=== PATIENT | male | born 1950 | race Caucasian/White ===

== ENCOUNTER 2017-02-28 18:14 | Inpatient (IN) ==
[2017-02-28] MEDS ORDERED: *HR* Heparin 5,000 UNIT/ML VIAL IVP PRN ×2 (22:21→22:29)
--- NOTE | 2017-02-28 22:29 | Internal Med History&Physical ---
Date of Encounter: 02/28/17 Time of Encounter: 22:24 Assessment and Plan (1) NSTEMI (non-ST elevated myocardial infarction) Current visit: Yes Status: Acute Likely NSTEMI TYPE 1 due to occlusive coronary artery disease. According to cardiology recommendations patient will be started on heparin drip aspirin Plavix nitro drip. Patient has significantly improved during the interview. Will have a coronary Angiogram tomorrow. However heart rate is in the 60s no room for beta blockers. Supporters 17. EKG shows [address] segment elevation in V1 and avr operating criteria for stemi and no reciprocal ST segment depression. Internal Medicine - H&P: HPI Chief complaint: chest pain History of present illness: Mr. Porras is a 66 year old male presents to the emergency room today with a main complain of chest pain. Patient mention since yesterday he started having episodes of retrosternal chest pain radiating to both shoulders and arms associated with shortness of breath lasting for approximately 15 to 20 minutes. His pain has significantly improved during my interview. no fevers chills. He mentioned that she had used flex seed prior to the onset of symptoms but does not think that this is related. troponin level checked at outside facility was 17 Past Med Surg Social Fam HX - Past Medical History Medical history: hypertension, kidney stones, myocardial infarction, renal disease, other Psychiatric history: no psych history - Past Surgical History Surgical History: other - Social History Smoking Status: Never smoker Smokeless Tobacco Status: No Alcohol use: occasionally Drug use: none, other - Family History Father Age at : 76 Hx Family Genitourinary Disorders: Yes (kidney problems) Internal Medicine - H&P: Meds Albuterol Sulfate [Ventolin Hfa] 2 puff IH QID PRN 02/28/17 [History] Amlodipine Besylate 10 mg PO DAILY 02/28/17 [History] Gabapentin [Neurontin] 600 mg PO BID 02/28/17 [History] Lisinopril [Zestril] 20 mg PO BID 02/28/17 [History] 3 Allergy/AdvReac Type Severity Reaction Status Date / Time No Known Allergies Allergy Verified 02/28/17 16:29 All Systems PM: A 10-system review of systems was performed and is negative for pertinent findings except as documented above in the HPI. Review of systems: 10 point review systems is negative except for HPI - Constitutional Vitals: Temp Pulse Resp BP Pulse Ox 97.8 F 67 16 148/86 94 02/28/17 20:24 02/28/17 20:24 02/28/17 20:24 02/28/17 20:24 02/28/17 20:24 Exam: Gen.: patient is alert oriented times 3 not in distress. Cardiac: normal S1 S2 no additional sounds or murmurs chest: fair air entry. no active wheezing. No crackles or bronchial breathing. abdomen: soft nontender nondistended normal bowel sounds neuro: no focal deficit
[2017-02-28] MEDS ORDERED: Heparin 25,000 UNIT/500 ML D5W 25,000 UNIT/500 ML MLS IVC SCH (22:30)
[2017-02-28] MEDS: Lisinopril 20 MG TABLET PO SCH (23:04)
[2017-02-28] MEDS: Gabapentin 300 MG CAPSULE PO SCH (23:04)
[2017-03-01 00:58] LABS: Hemoglobin 14.7 g/dL (12.9-16.9); Immature Platelets 4.3 % (1.1-6.1); Mean Corpuscular HGB Conc 34.2 g/dL (31.6-35.5); Mean Corpuscular Hemoglobin 30.9 pg (28.0-33.3); Mean Corpuscular Volume 90.5 fL (83.0-100.0); Mean Platelet Volume 10.3 fL (9.4-12.4); Red Blood Count 4.75 M/mcL (4.19-5.50); Red Cell Distribution Width 12.2 % (11.5-14.5)
[2017-03-01 01:15] LABS: INR 1.1; Prothrombin Time 11.8 Seconds (9.4-12.1)
[2017-03-01 07:16] LABS: INR 1.1; Prothrombin Time 11.9 Seconds (9.4-12.1)
[2017-03-01 07:18] LABS: Basophils % 0.2 %; Eosinophils # 0.1 K/mcL (0.0-0.6); Eosinophils % 1.5 %; Hematocrit 43.5 % (37.5-50.1); Hemoglobin 15.1 g/dL (12.9-16.9); Immature Granulocytes % 0.3 % (0-4); Lymphocytes # 2.3 K/mcL (0.6-4.6); Lymphocytes % 23.9 %; Mean Corpuscular HGB Conc 34.7 g/dL (31.6-35.5); Mean Corpuscular Hemoglobin 31.5 pg (28.0-33.3); Mean Corpuscular Volume 90.6 fL (83.0-100.0); Mean Platelet Volume 10.3 fL (9.4-12.4); Monocytes # 1.2 K/mcL (0.0-1.3); Monocytes % 12.5 %; Neutrophils # 5.8 K/mcL (1.6-8.9); Platelet Count 198 K/mcL (140-400); Red Cell Distribution Width 12.3 % (11.5-14.5); Segmented Neutrophils % 61.6 %
[2017-03-01 07:22] LABS: BUN/Creatinine Ratio 12 (6-26); Blood Urea Nitrogen 12 mg/dL (8-26); Calcium 9.6 mg/dL (8.6-10.8); Carbon Dioxide 25 mEq/L (19-29); Chloride 108 mEq/L (98-109); Glucose 108 mg/dL (70-99); Magnesium 2.1 mg/dL (1.6-2.6); Osmolality,Calculated 288 (280-300); Potassium 4.1 mEq/L (3.5-4.5); Sodium 139 mEq/L (136-145); eGFR For African Americans > 60 (> 60); eGFR For Non-African Americans > 60 (> 60)
[2017-03-01] MEDS: Gabapentin 300 MG CAPSULE PO SCH ×2 (07:59→20:20)
[2017-03-01] MEDS: amLODIPine 5 MG TABLET PO SCH (07:59)
[2017-03-01] MEDS: Lisinopril 20 MG TABLET PO SCH ×2 (07:59→20:30)
[2017-03-01] MEDS: Aspirin 325 MG TABLET PO SCH (07:59)
[2017-03-01] MEDS ORDERED: Lisinopril 20 MG TABLET PO SCH (09:00)
[2017-03-01] MEDS ORDERED: Gabapentin 300 MG CAPSULE PO SCH (09:00)
--- NOTE | 2017-03-01 10:12 | Cardiology Consult Note ---
<Parminder Long - Last Filed: 03/01/17 11:36> Date of Encounter: 03/01/17 Time of Encounter: 08:45 Assessment and Plan (1) NSTEMI (non-ST elevated myocardial infarction) Current Visit: Yes Status: Acute Troponin up to 19.4. No acute ST changes on EKG. TTE completed shows EF 40-45%. Segmental wall motion abnormalities seen. No previous studies to compare. Reports h/o cardiomyopathy that resolved in 1989. Currently pain free. H/o CAD and TX in 1989. No intervention at that time. Stopped taking cardiac meds in 2000. Continue heparin gtt. Asa, statin, and bb. He was loaded with 600 mg plavix yesterday evening. [facility] R/B/A discussed and he agrees to proceed. Discussion w patient/family: The assessment and plan as outlined above was discussed with the patient and/or family members who expressed understanding and agreement. All questions were answered. Thank you for involving us in the care of your patient. Please call with any questions. History of Present Illness Consult date: 03/01/17 Requesting physician: Berry Verma Consult reason: NSTEMI Chief complaint: Chest pain History of present illness: Mr. Porras is a 66 year old male with a history of CAD s/p TX in 1989, cardiomyopathy, HTN, HLD, and colon cancer s/p colon resection who presented to [facility] ER with midstrnal chest pain radiating to his bilateral lower arms. He reports his pain started two days ago and was associated with diaphoresis and SOB. He states that he knew he had a heart attack but ignred it. he went to work the next morning. He continued to have intermittent chest discomfort with activity. His co-worker talked him into going to the hospital. He states that he stopped taking his cardiac meds in 2000 when he stopped medication for his colon resection surgery. He was found to have troponin elevation at 13 and was transferred to [facility] for [facility]. Troponin elevated up to 19.4. EKG showed SR with no acute ST changes. He was given NTG with relief of his pain. He is currently pain free. Past Med Surg Social Fam HX - Past Medical History Medical history: cardiomyopathy, coronary artery disease, hypertension, kidney stones, myocardial infarction, renal disease, other Psychiatric history: no psych history - Past Surgical History Surgical History: other - Social History Smoking Status: Never smoker Smokeless Tobacco Status: No Alcohol use: occasionally Drug use: none, other - Family History Father Age at : 76 Hx Family Genitourinary Disorders: Yes (kidney problems) Medications and Allergies Albuterol Sulfate [Ventolin Hfa] 2 puff IH QID PRN 02/28/17 [History] Amlodipine Besylate 10 mg PO DAILY 02/28/17 [History] Gabapentin [Neurontin] 600 mg PO BID 02/28/17 [History] Lisinopril [Zestril] 20 mg PO BID 02/28/17 [History] 3 Allergy/AdvReac Type Severity Reaction Status Date / Time No Known Allergies Allergy Verified 02/28/17 16:29 All Systems Review: A 10-system review of systems was performed and is negative for pertinent findings except as documented above in the HPI. Physical Examination Vital Signs, Last 4 Hours Temp Pulse Resp BP Pulse Ox 03/01/17 07:05 97.9 F 74 16 132/82 94 General: Conversant, No Apparent Distress HEENT: Atraumatic, Normocephaly, Mucus Membranes Moist Neck: No JVD, Normal carotid pulses Cardiac: Reg Rate and Rhythm, Normal S1 and S2, No Murmur Lungs: Normal Breath Sounds, No Wheeze, Rales, Rhonchi Neuro: Alert and responsive, No focal deficits noted Abdomen: Soft, Non-Tender Skin: No rashes noted on visualized skin Musculoskeletal: No Chest Wall Tenderness Extremities: No Clubbing, No Cyanosis, No Edema, Normal Pulses Results 03/01/17 06:55 03/01/17 06:55 Lab Results 03/01/17 03/01/17 03/01/17 00:23 00:23 00:23 WBC 9.7 Hgb 14.7 Hct 43.0 Plt Count 223 INR 1.1 APTT 61.8 H D Sodium Potassium Chloride Carbon Dioxide BUN Creatinine Glucose Calcium Magnesium Troponin I 03/01/17 03/01/17 03/01/17 00:23 06:55 06:55 WBC 9.5 Hgb 15.1 Hct 43.5 Plt Count 198 INR 1.1 APTT Sodium Potassium Chloride Carbon Dioxide BUN Creatinine Glucose Calcium Magnesium Troponin I 19.41 H* 03/01/17 03/01/17 06:55 06:55 WBC Hgb Hct Plt Count INR APTT 65.3 H Sodium 139 Potassium 4.1 Chloride 108 Carbon Dioxide 25 BUN 12 Creatinine 0.97 Glucose 108 H Calcium 9.6 Magnesium 2.1 Troponin I - Imaging and Cardiology Echo: pending Cardiac cath: pending - EKG Interpretation EKG results cardiology: personally reviewed Consult Discharge Plan - Plan Referrals: NONE,PCP [Primary Care Provider] - <TrayAvinash Harrison - Last Filed: 03/01/17 14:13> Date of Encounter: 03/01/17 - Attending Attestation I have personally performed a face to face evaluation on this patient. I have reviewed and agree with the care plan. History and Exam by me shows: Late presentation TX fro several days ago. Currently pain free. Left heart cath today, he agrees. Assessment and Plan Discussion w patient/family: The assessment and plan as outlined above was discussed with the patient and/or family members who expressed understanding and agreement. All questions were answered. Thank you for involving us in the care of your patient. Please call with any questions. History of Present Illness History of present illness: Mr. Porras is a 66 year old male All Systems Review: A 10-system review of systems was performed and is negative for pertinent findings except as documented above in the HPI. Physical Examination Vital Signs, Last 4 Hours Temp Pulse Resp BP Pulse Ox 03/01/17 12:08 97.9 F 69 18 128/77 93 Results 03/01/17 06:55 03/01/17 06:55 Lab Results 03/01/17 03/01/17 03/01/17 00:23 00:23 00:23 WBC 9.7 Hgb 14.7 Hct 43.0 Plt Count 223 INR 1.1 APTT 61.8 H D Sodium Potassium Chloride Carbon Dioxide BUN Creatinine Glucose Calcium Magnesium Troponin I 03/01/17 03/01/17 03/01/17 00:23 06:55 06:55 WBC 9.5 Hgb 15.1 Hct 43.5 Plt Count 198 INR 1.1 APTT Sodium Potassium Chloride Carbon Dioxide BUN Creatinine Glucose Calcium Magnesium Troponin I 19.41 H* 03/01/17 03/01/17 06:55 06:55 WBC Hgb Hct Plt Count INR APTT 65.3 H Sodium 139 Potassium 4.1 Chloride 108 Carbon Dioxide 25 BUN 12 Creatinine 0.97 Glucose 108 H Calcium 9.6 Magnesium 2.1 Troponin I
[2017-03-01] MEDS ORDERED: 0.9 % Sodium Chloride 1,000 ML ONE ×2 (12:48→13:27)
[2017-03-01] MEDS ORDERED: Nitroglycerin 1,000 MCG/10 ML VIAL IV ONE (12:48)
[2017-03-01] MEDS ORDERED: *HR* Heparin 10,000 UNIT/10 ML VIAL ONE (12:48)
[2017-03-01] MEDS ORDERED: Heparin 1,000 UNITS/500 mL NS 500 ML ONE (12:48)
[2017-03-01] MEDS: Metoprolol XL (24 HR) Succ 25 MG TAB.ER.24H PO SCH (13:18)
[2017-03-01] MEDS ORDERED: *HR* Midazolam HCl 2 MG/2 ML VIAL ONE (13:42)
--- NOTE | 2017-03-01 14:39 | Invasive Diagnostic Lab Proc ---
Name: Kevin Porras Date of Study: 03/01/2017 Date: 1950 Ht: 72.0in Medical Record#: [id number] Age: 66 Wt: 240.30lb Gender: Male BSA: 2.3 Order #: [id number] BMI: 32.55 Physicians Procedure Physician: Danny Moffett DO Referring MD: Referring MD: Staff Name Position Time In Sites, Chiara RT (R) Scrub 01:25 PM Benjamin Villaseñor RT (R) Monitor 01:25 PM Guerita Corona RN Cell Coverer 01:39 PM Jossie Daily RN Cell Coverer 01:41 PM Indications Indication Non-Stemi Procedures Performed Procedure L HRT ARTERY/VENTRICLE ANGIO Pre-Procedure Checklist Informed consent is complete signed and on chart. H&P is on chart. ID band is on and ID verified with patient. Patient NPO for procedure The procedure was described for the patient and questions were answered. Blood Pressure: 151/88 ECG is on chart. Rhythm: NSR Plan of Care Patient will tolerate the procedure without complications. Adequate level of comfort will be maintained. Hemodynamics will remain stable Patient will recover from procedure without complications. Respiratory function will be maintained. Cardiac rhythm will remain stable. Patient temperature will be maintained. Patient and/or family have verbalized understanding of the procedure. Patient Education Chief Complaint/Reason for Test: Cardiac Cath Developmental Category: Geriatric (65+ years) Developmentally Appropriate for Age: Yes Learning Barriers: None Education Needs: Procedure Education Method: Verbal Information Taught: Cardiac Cath Educational Evaluation: Able to repeat information Intravenous Access Time IV Size Location DC'd Fluid/Drip Rate Units RN 01:26 PM 18g 1 1/4" Patent On Arrival Rt Hand Jessica Elias RN 01:26 PM 18g 1 1/4" Patent On Arrival Lt Antecubital 0.9NaCl 25 ml/hr Jessica Elias RN Allergies No Known Allergies Vital Signs Time BP (mmHg) HR (bpm) O2 Sat. RR (bpm) LOC 01:26 PM 151 / 88 72 97 % 16 5 = Fully awake and oriented or at pre-proc level 01:26 PM / % 5 = Fully awake and oriented or at pre-proc level 01:41 PM / % 4 = Oriented but drowsy 01:56 PM / % 5 = Fully awake and oriented or at pre-proc level 01:39 PM 151 / 88 80 % 17 01:44 PM 145 / 80 63 94 % 18 01:49 PM 130 / 75 73 90 % 21 01:54 PM 129 / 73 66 91 % 21 01:59 PM 124 / 77 68 92 % 22 02:04 PM 126 / 74 67 91 % 21 02:09 PM 141 / 85 71 93 % 21 02:14 PM 125 / 72 73 93 % 14 02:19 PM 133 / 81 65 94 % 15 02:24 PM 139 / 77 67 % 13 Procedural Medications Time Medication Dose Units Method Given By 01:40 PM Oxygen 2 L/min nasal cannula Guerita Corona RN 01:43 PM Versed 2 mg Intravenous Jossie Daily RN 01:58 PM Lidocaine 2% 10 ml Subcutaneous Danny Moffett DO ASA Classification: CLASS III- Severe systemic disease (i.e. prior AMI, diabetes with vascular complications, morbid obesity) Daniela Score Preprocedure Postprocedure Activity 2- Moves 4 extremities sustained head lift Activity 2- Moves 4 extremities sustained head lift Circulation 2- SBP +/= 20 points of pre-anesthetic level Circulation 2- SBP +/= 20 points of pre-anesthetic level Consciousness 2- Awake and alert oriented x 3 Consciousness 2- Awake and alert oriented x 3 O2 Saturation 2- Able to maintain O2 satruation of 92% on room air O2 Saturation 2- Able to maintain O2 satruation of 92% on room air Respiratory 2- Able to deep breathe and cough well Respiratory 2- Able to deep breathe and cough well Total Score 10 Total Score 10 Contrast Agent: Isovue Diagnostic Contrast: 50 ml Total Contrast: 50 ml Fluoro Dose: 298 mGy Activated Clotting Time Time Seconds to Clot 02:12 PM 138 Procedure Log Time Note Enter By 01:23 PM Patient charges- Angio tray pack, Navilyst 3mm J, Pulse Oximetry and ACIST tubing and transducer [email or web address] 01:25 PM Chiara Goodman RT (R) Position: Scrub Time in: 13:25 2 01:25 PM Benjamin Villaesñor RT (R) Position: Monitor Time in: 13:25 : PM Pt arrived to laborer cheesemaking 2 at 13:26 [email or web address] : PM Time: 13:26 Patient comfortable and pain free: Yes : PM Time: 13:26LOC: 5 = Fully awake and oriented or at pre-proc level : PM Case Delayed No : PM CathStat 01:35 PM Physician arrived 13:35 :35 PM Meet and greet completed :36 PM Sign in performed according to hospital policy. :36 PM Procedure start 13:36 :36 PM ASA Class CLASS III- Severe systemic disease (i.e. prior AMI, diabetes with vascular complications, morbid obesity) :38 PM Vitals capture started with the following parameters, Patient=Adult, Interval=5 min, Initial Jowpwlyz=633 mmHg, Deflation Rate=5 mmHg, Cuff placed on Right Arm 01:39 PM Guerita Corona RN Position: Cell Coverer Time in: 13:39 :39 PM HR=80 bpm, XBYT=507/88 mmhg, Resp=17 B/min 01:39 PM Recorded ECG: HR=69 Condition=Condition 1 01:40 PM Hair removed from procedure site in procedure lab using clippers. Bilateral groin prepped with Chloraprep by Jossie Daily RN, safety strap applied then patient was draped. Skin intact. PM Time: 13:40 Oxygen on at 2 L/min per nasal cannula by Guerita Corona RN PM Time: 13:26 Patient comfortable and pain free: Yes PM Time: 13:26LOC: 5 = Fully awake and oriented or at pre-proc level PM Jossie Daily RN Position: Cell Coverer Time in: ::42 PM Clinical Presentation: Non-STEMI 43 PM Time: 13:43 Versed 2 mg Intravenous Given by Jossie Daily RN 01:44 PM HR=63 bpm, SLAM=778/80 mmhg, SpO2=94.0 %, Resp=18 B/min, Comment=NSR 01:49 PM HR=73 bpm, UFWX=218/75 mmhg, SpO2=90.0 %, Resp=21 B/min, Comment=NSR 01:49 PM Pressure channel 2 zeroed. 01:54 PM HR=66 bpm, JYLF=152/73 mmhg, SpO2=91.0 %, Resp=21 B/min, Comment=NSR 01:56 PM Time: 13:41LOC: 4 = Oriented but drowsy :56 PM Time: 13:41 Patient comfortable and pain free: Yes :57 PM Time: 13:58 10 ml Lidocaine 2% to right groin Subcutaneous Given by Danny Moffett, 01:57 PM Time out performed according to hospital policy :58 PM Micro-Introducer Kit utilized for sheath placement 01:59 PM HR=68 bpm, YNCQ=863/77 mmhg, SpO2=92.0 %, Resp=22 B/min, Comment=NSR 02:01 PM Access obtained by percutaneous puncture. 6Fr 10cm Terumo [place] sheath placed in right Femoral artery. [id number] 02:01 PM 0.035 145cm Navilyst 3mmJ wire [id number] 02:01 PM 5Fr FR 4 catheter inserted over the wire [facility] 02:01 PM Catheter selectively placed in left ventricle 02:01 PM Hand injected LV 02:02 PM Recorded Pressure: LV, HR=60, Condition=Condition 1 (Left Ventricle) LV 62/62/62 02:02 PM Recorded Pressure: LV, Ao, HR=70, Condition=Condition 1 (Left Ventricle) LV 94/4/5, (Aorta) Ao ?/?/? 02:02 PM RCA angiography performed in multiple views. 02:03 PM Catheter removed 02:03 PM 5Fr FL 4 catheter inserted over the wire [facility] 02:04 PM LCA angiography performed in multiple views. 02:04 PM HR=67 bpm, ZTJE=996/74 mmhg, SpO2=91.0 %, Resp=21 B/min, Comment=NSR 02:04 PM Recorded Pressure: Ao, HR=67, Condition=Condition 1 (Aorta) Ao 100/64/83 02:05 PM Coronary Dominance: Left 02:05 PM Cardiothoracic surgeon consulted by physician [email or web address] 02:05 PM Recorded Pressure: Ao, HR=70, Condition=Condition 1 (Aorta) Ao 104/72/88 02:06 PM Catheter removed 02:07 PM Procedure completed at 14:07 [email or web address] 02:09 PM HR=71 bpm, ZKQR=590/85 mmhg, SpO2=93.0 %, Resp=21 B/min, Comment=NSR 02:09 PM Sign out completed: Radiation Dose 298.29 mGy Fluoro Time: 1.2 Isovue 370 - 200ml contrast 50 ml given by Danny Moffett DO. Complications: NoneCardiac Rehab Consult needed: YesConfirmed administered medications: Yes [email or web address] 02:09 PM Isovue 370 - 200ml,1 Bottle(s) used. [email or web address] 02:09 [address] with Dr[address] Cortes [email or web address] 02:10 PM Estimated Blood Loss: minimal [email or web address] 02:10 PM Post ECG NSR [email or web address] 02:10 PM Post Blood Pressure 141/85 [email or web address] 02:10 PM Lesion found in Mid RCA. Pre Stenosis: 80 Pre LOLA Flow: [email or web address] 02:10 PM Right Coronary, Right Posterior Descending Arteries with Right Posterolateral and Acute Marginal branches with 80 % stenosis. If graft is supplying this area, 0 % stenosis [email or web address] 02:11 PM Lesion found in Proximal LAD. Pre Stenosis: 100 Pre LOLA Flow: [email or web address] 02:11 PM Proximal Left Anterior Descending Coronary Artery with 100% stenosis. If graft is supplying this territory, 0 % stenosis. [email or web address] 02:11 PM Lesion found in 1st Diagonal. Pre Stenosis: 80 Pre LOLA Flow: [email or web address] 02:11 PM Mid/Distal Left Anterior Descending Coronary Artery and diagonal branches with 80% stenosis. If graft is supplying this area, 0 % stenosis [email or web address] 02:11 PM Lesion found in 1st Marginal. Pre Stenosis: 80 Pre LOLA Flow: [email or web address] 02:11 PM Circumflex, Obtuse Marginal, Left Posterior Descending, and Left Posterolateral Coronary Arteries with 80 % stenosis. If graft is supplying this area, 0 % stenosis [email or web address] 02:11 PM Time: 13:56 Patient comfortable and pain free: Yes [email or web address] 02:11 PM Time: 13:56LOC: 5 = Fully awake and oriented or at pre-proc level [email or web address] 02:12 PM At 14:12 the ACT was 138 seconds. [email or web address] 02:12 PM Information taught Cardiac Cath [email or web address] 02:12 PM Education needs Procedure, Plan of Care, and Disease Process [email or web address] 02:12 PM Learning barriers :Sedated [email or web address] 02:12 PM Education Methods Verbal [email or web address] 02:12 PM Education evaluation Needs further instruction [email or web address] 02:12 PM Delay to floor No [email or web address] 02:12 PM Complications: None [email or web address] 02:13 PM Fluoro Time: 1.2 [email or web address] 02:13 PM Isovue 370 - 200ml contrast 50 ml given by Danny Moffett DO. [email or web address] 02:13 PM Radiation Dose 298.29 mGy [email or web address] 02:13 PM Arterial sheath pulled using manual compression and [facility] [email or web address] 02:14 PM HR=73 bpm, JATT=593/72 mmhg, SpO2=93.0 %, Resp=14 B/min, Comment=NSR 02:17 PM Family placed in consult room. [email or web address] 02:19 PM HR=65 bpm, MZHR=561/81 mmhg, SpO2=94.0 %, Resp=15 B/min, Comment=NSR 02:22 PM Report given to erwin RN Pt taken to Room #46. 14:19 [email or web address] 02:24 PM HR=67 bpm, OOYJ=936/77 mmhg, Resp=13 B/min, Comment=NSR 02:28 PM pressure held rt groin 14 mins. [facility] RT [email or web address] 02:28 PM Site status No bleeding/hematoma - Rt Groin as reported by Sites, Chiara RT (R) at 14:28 [email or web address] 02:28 PM Opsite applied [email or web address] 02:29 PM Vitals capture stopped. 02:31 PM Patient out of room: 14:31 [email or web address] Complications Complication None None Hemodynamics Pressures Site Systolic/A Wave Diastolic/V Wave Mean LV 62 62 62 LV 94 4 5 AO AO 100 64 83 AO 104 72 88 Post Procedure Information Blood Pressure: 141/85 mmHg Rhythm: NSR Post procedural instructions were given Surgery consult for CABG Site Checks Time Location Status Staff Sheath In? Note 02:28 PM Rt Groin No bleeding/hematoma Sites, Chiara RT (R) Pulses Time Site Pre-Procedure Post-Procedure Note 03/01/2017 1:26:00 PM Bilateral DP & PT 1+ Updated by Benjamin Villaseñor RT (R) on 03/01/2017 2:32:02 PM Benjamin Villaseñor RT electronically signed on 03/01/2017 2:32:27 PM with status of Final
--- NOTE | 2017-03-01 15:24 | Cardiothoracic Consult Note ---
Date of Encounter: 03/01/17 Time of Encounter: 15:20 Assessment and Plan (1) NSTEMI (non-ST elevated myocardial infarction) Current Visit: Yes Status: Acute The patient is a 66-year-old hypertensive man with known CAD. He experienced an acute NSTEMI on Monday, February 27, 2017. He underwent cardiac catheterization today was found to have severe 2 vessel CAD and an LVEF 40%. He has been recommended for CABG. I concur with this recommendation. The STS risk calculator reveals an operative mortality risk 0.95%, permanent stroke risk 1.47 %, deep sternal wound infection risk 0.30%, renal failure risk 2.01%, and reoperation risk 4.57%. The patient did receive a loading dose of Plavix followed by a daily dose of Plavix his morning. This will be discontinued and the patient's CABG will be delayed until Monday, March 06, 2017 to allow the antiplatelet effect to diminish. The assessment and plan as outlined above was discussed with the patient and/or family members who expressed understanding and agreement. All questions were answered. - History of Present Illness Consult date: 03/01/17 Requesting physician: Danny Moffett Consult reason: CABG evaluation. Chief complaint: Substernal chest pain/NSTEMI History of present illness: Mr. Porras is a 66 year old hypertensive man with known CAD. The patient's cardiac history dates to 1989 which time he suffered an acute myocardial infarction. At that time he was treated medically and had no intervention. He did well until approximately one month ago when he began noticing exertional, nonradiating substernal chest pain. On Sunday, number 19/11/2016 the patient had sudden onset of severe, unrelenting substernal chest pain radiating to his shoulders and down both arms. He had associated shortness of breath, diaphoresis , and nausea. He decided not to seek medical attention and rested at home. The following morning, he had no substernal chest pain. However, he had recurrent substernal chest pain with activity. He went to work and experienced intermittent pain throughout the day. He was encouraged by a coworker to seek medical attention. The patient was evaluated at [facility] and found to have elevated troponin I levels consistent with an acute NSTEMI. He was treated medically and transferred to [facility] for further cardiac care. He was given aspirin, beta declan, and Plavix, and had relief of his symptoms. He was recommended for cardiac catheterization. Catheterization performed today showed severe two-vessel CAD and an LVEF 40%. In particular, the patient had a completely occluded proximal LAD which filled distally via left left collaterals, an 80% proximal D1 lesion, an 80% proximal OM1 lesion. The RCA appeared to be small and nondominant. He has been recommended for CABG. Past Med Surg Social Fam HX - Past Medical History Medical history: cardiomyopathy, coronary artery disease, hypertension, kidney stones, myocardial infarction, renal disease, TIA, other (BPH) Psychiatric history: no psych history - Past Surgical History Surgical History: orthopedic, other (Left knee arthroscopy), other (Left hemicolectomy, Greenlight prostate resection, bilateral cataract excision with lens implantation) - Social History Smoking Status: Never smoker Smokeless Tobacco Status: Yes (None since 1983.) Alcohol use: recent (2 beers per night) Drug use: none, other Occupational status: employed Current living situation: Home - Independent Activity Level: Independent ambulation Recent Out of Country Travel Within the Last 8 Weeks: No Exposure or Possible Exposure to Illness During Travel: No - Family History Father Age at : 76 Hx Family Genitourinary Disorders: Yes (kidney problems) Medications and Allergies Albuterol Sulfate [Ventolin Hfa] 2 puff IH QID PRN 02/28/17 [History] Amlodipine Besylate 10 mg PO DAILY 02/28/17 [History] Gabapentin [Neurontin] 600 mg PO BID 02/28/17 [History] Lisinopril [Zestril] 20 mg PO BID 02/28/17 [History] 3 Allergy/AdvReac Type Severity Reaction Status Date / Time No Known Allergies Allergy Verified 02/28/17 16:29 All Systems Review: A 10-system review of systems was performed and is negative for pertinent findings except as documented above in the HPI. Physical Examination Vital Signs, Last 4 Hours Temp Pulse Resp BP Pulse Ox 03/01/17 12:08 97.9 F 69 18 128/77 93 HEENT: Atraumatic, Normocephaly, Trachea midline Neck: No JVD, Normal carotid pulses Cardiac: Reg Rate and Rhythm, Normal S1 and S2, No Murmur Lungs: Normal Breath Sounds, No Wheeze, Rales, Rhonchi Neuro: Alert and responsive, No focal deficits noted Vascular: Normal capillary refill Abdomen: Soft, Non-tender Skin: No rashes noted on visualized skin Musculoskeletal: No Chest Wall Tenderness Extremities: No Clubbing, No Cyanosis, No Edema, Normal Pulses Results 03/01/17 06:55 03/01/17 06:55 Lab Results, Last 24 hours 03/01/17 03/01/17 03/01/17 00:23 00:23 00:23 WBC 9.7 Hgb 14.7 Hct 43.0 Plt Count 223 INR 1.1 APTT 61.8 H D Sodium Potassium Chloride Carbon Dioxide BUN Creatinine Glucose Calcium Magnesium Troponin I 03/01/17 03/01/17 03/01/17 00:23 06:55 06:55 WBC 9.5 Hgb 15.1 Hct 43.5 Plt Count 198 INR 1.1 APTT Sodium Potassium Chloride Carbon Dioxide BUN Creatinine Glucose Calcium Magnesium Troponin I 19.41 H* 03/01/17 03/01/17 06:55 06:55 WBC Hgb Hct Plt Count INR APTT 65.3 H Sodium 139 Potassium 4.1 Chloride 108 Carbon Dioxide 25 BUN 12 Creatinine 0.97 Glucose 108 H Calcium 9.6 Magnesium 2.1 Troponin I Consult Discharge Plan - Plan Referrals: NONE,PCP [Primary Care Provider] -
[2017-03-01] MEDS ORDERED: CeFAZolin Syr 2,000MG/20 ML 2,000 MG/20 ML SYRINGE IVPB ONE (15:33)
[2017-03-01 16:17] LABS: Hemoglobin A1C 5.1 %
[2017-03-01 16:24] LABS: Chol/HDL Ratio 6.1 (0-4.9)
[2017-03-01] MEDS: 0.9 % Sodium Chloride 1,000 ML IVC SCH (17:52)
[2017-03-01] MEDS ORDERED: *HR* Heparin 5,000 UNIT/ML VIAL IVP PRN (19:47)
[2017-03-01] MEDS: Chlorhexidine Rinse 15 ML MOUTHWASH MM SCH (20:19)
[2017-03-01] MEDS: Heparin 25,000 UNIT/500 ML D5W 25,000 UNIT/500 ML MLS IVC SCH (20:20)
[2017-03-02] MEDS: 0.9 % Sodium Chloride 1,000 ML IVC SCH ×2 (01:12→11:44)
[2017-03-02] MEDS: *HR* Heparin 5,000 UNIT/ML VIAL IVP PRN ×3 (03:01→21:09)
[2017-03-02] MEDS: Chlorhexidine Rinse 15 ML MOUTHWASH MM SCH (08:28)
[2017-03-02] MEDS: Lisinopril 20 MG TABLET PO SCH ×2 (08:33→21:08)
[2017-03-02] MEDS: Metoprolol XL (24 HR) Succ 25 MG TAB.ER.24H PO SCH (08:33)
[2017-03-02] MEDS: Gabapentin 300 MG CAPSULE PO SCH ×2 (08:34→21:09)
[2017-03-02] MEDS: Aspirin 325 MG TABLET PO SCH (08:34)
[2017-03-02] MEDS: amLODIPine 5 MG TABLET PO SCH (08:34)
--- NOTE | 2017-03-02 10:16 | Cardiothoracic Progress Note ---
Date of Encounter: 03/02/17 Time of Encounter: 10:15 - Assessment and plan (1) NSTEMI (non-ST elevated myocardial infarction) Current Visit: Yes Status: Acute The patient is a 66-year-old hypertensive man with known CAD. He experienced an acute NSTEMI on Monday, February 27, 2017. He underwent cardiac catheterization today was found to have severe 2 vessel CAD and an LVEF 40%. He has been recommended for CABG. I concur with this recommendation. The STS risk calculator reveals an operative mortality risk 0.95%, permanent stroke risk 1.47 %, deep sternal wound infection risk 0.30%, renal failure risk 2.01%, and reoperation risk 4.57%. The patient did receive a loading dose of Plavix followed by a daily dose of Plavix his morning. This will be discontinued and the patient's CABG will be delayed until Monday, March 06, 2017 to allow the antiplatelet effect to diminish. The assessment and plan as outlined above was discussed with the patient and/or family members who expressed understanding and agreement. All questions were answered. - Subjective Interval history: The patient remained hemodynamically stable overnight. He has complaints of chest pain or shortness of breath Vital Signs, Last 4 Hours Temp Pulse Resp BP Pulse Ox 03/02/17 07:12 98 F 84 16 136/86 98 Clinical Data, last 8 Hours Output, Urine Amount 300 Output, Urine Amount 850 Weight 02/28/17 03/01/17 03/02/17 23:59 23:59 23:59 Weight 112.446 kg 109.996 kg 93.984 kg - Physical Examination General: Conversant, No Apparent Distress Neck: No JVD, Normal carotid pulses Cardiac: Reg Rate and Rhythm, Normal S1 and S2, No Murmur Lungs: Normal Breath Sounds, No Wheeze, Rales, Rhonchi Neuro: Alert and responsive, No focal deficits noted Vascular: Normal capillary refill Extremities: No Clubbing, No Cyanosis, No Edema, Normal Pulses - Labs 03/01/17 06:55 03/01/17 06:55 Lab Results, Last 24 hours 03/01/17 03/01/17 03/02/17 20:18 20:18 02:24 APTT 32.8 Troponin I 8.23 H* 8.20 H* 03/02/17 03/02/17 03/02/17 02:24 08:26 08:26 APTT 40.2 H 58.2 H Troponin I 7.90 H* Consult Discharge Plan - Plan Referrals: NONE,PCP [Primary Care Provider] -
--- NOTE | 2017-03-02 12:44 | Cardiology Progress Note ---
Date of Encounter: 03/02/17 Time of Encounter: 11:45 Assessment and Plan (1) NSTEMI (non-ST elevated myocardial infarction) Current Visit: Yes Status: Acute Troponin up to 19.4 and now trending down. No acute ST changes on EKG. S/p LHC that showed severe triple vessel CAD. Planning for CABG next sunday. TTE completed shows EF 40-45%. Segmental wall motion abnormalities seen. No previous studies to compare. Reports h/o cardiomyopathy that resolved in 1989. Currently pain free. Continue heparin gtt. Asa, statin, and bb. Imdur added for chest pain. He was loaded with 600 mg plavix. CABG scheduled Sunday to allow plavix washout. Cardiology will sign off. CT surgery following. Call with questions. (2) Cardiomyopathy Current Visit: Yes Status: Acute EF 40-45%, mildly reduced systolic dysfunction. Currently euvolemic. On sury- inhibitor and bb. Low sodium diet. Caution with IV fluid. Qualifiers: Cardiomyopathy type: ischemic Qualified Code(s): I25.5 - Ischemic cardiomyopathy Discussion w patient/family: The assessment and plan as outlined above was discussed with the patient and/or family members who expressed understanding and agreement. All questions were answered. Thank you for involving us in the care of your patient. Please call with any questions. Subjective Principal diagnosis: NSTEMI Interval history: S/p LHC. No complications. C/o chest pain this morning after walking to the bathroom and getting frustrated wit his gown. Chest pain relieved after he sat down to rest. Planning for CABG next Sunday. Objective Vital Signs, Last 4 Hours Temp Pulse Resp BP Pulse Ox 03/02/17 11:57 97.4 F L 66 16 143/82 94 General: Conversant, No Apparent Distress HEENT: Atraumatic, Normocephaly, Mucus Membranes Moist Neck: No JVD, Normal carotid pulses Cardiac: Reg Rate and Rhythm, Normal S1 and S2, No Murmur Lungs: Normal Breath Sounds, No Wheeze, Rales, Rhonchi Neuro: Alert and responsive, No focal deficits noted Abdomen: Soft, Non-Tender Skin: No rashes noted on visualized skin Musculoskeletal: No Chest Wall Tenderness Extremities: No Clubbing, No Cyanosis, No Edema, Normal Pulses, Other (Right femoral drssing removed.) Results 03/01/17 06:55 03/01/17 06:55 Lab Results 03/01/17 03/01/17 03/02/17 20:18 20:18 02:24 APTT 32.8 Troponin I 8.23 H* 8.20 H* 03/02/17 03/02/17 03/02/17 02:24 08:26 08:26 APTT 40.2 H 58.2 H Troponin I 7.90 H* - Imaging and Cardiology Echo: report reviewed - EKG Interpretation EKG results cardiology: personally reviewed Consult Discharge Plan - Plan Referrals: NONE,PCP [Primary Care Provider] -
[2017-03-02] MEDS: Isosorbide MONOnitrate (24 HR) 30 MG TAB.ER.24H PO SCH (13:23)
--- NOTE | 2017-03-02 15:08 | Internal Med Progress Note ---
Date of Encounter: 03/02/17 Time of Encounter: 15:05 - Assessment and plan (1) NSTEMI (non-ST elevated myocardial infarction) Current Visit: Yes Status: Acute Assessment and plan: Patient presented with chest pain and noted to have ischemic EKG changes along with troponin elevation, peak troponin 19.4, now trending down. Continue IV heparin drip, aspirin, Plavix and statin. Cardiology was consulted and patient underwent left heart catheterization, which revealed severe three-vessel coronary artery disease, recommended elective bypass surgery. Patient was evaluated by cardiothoracic surgery, who recommended CABG on 03/06/17 to allow time for Plavix washout. Continue beta declan, Imdur, KEEGAN inhibitor. Echocardiogram was done which showed moderate systolic dysfunction with 40-45% ejection fraction, segmental wall motion abnormalities, mild left ventricular diastolic dysfunction. (2) CAD (coronary artery disease) Current Visit: Yes Status: Chronic Qualifiers: Coronary Disease-Associated Artery/Lesion type: [place] artery [place] vs. transplanted heart: [place] heart Associated angina: with unstable angina Qualified Code(s): I25.110 - Atherosclerotic heart disease of [place] coronary artery with unstable angina pectoris (3) Essential hypertension Current Visit: Yes Status: Chronic (4) CKD (chronic kidney disease) Current Visit: Yes Status: Suspected Assessment and plan: Serum creatinine noted to be stable, at around baseline. Continue to monitor closely, at risk for acute kidney injury due to recent left heart catheterization and MO. Qualifiers: Chronic kidney disease stage: stage 3 (moderate) Qualified Code(s): N18.3 - Chronic kidney disease, stage 3 (moderate) - Subjective Interval history: Reports intermittent chest pain at rest, mild to moderate; no dyspnea, palpitations, orthopnea; tolerates diet; - Constitutional Vitals: Temp Pulse Resp BP Pulse Ox 97.4 F L 66 16 143/82 94 03/02/17 11:57 03/02/17 11:57 03/02/17 11:57 03/02/17 11:57 03/02/17 11:57 General appearance: Present: A&O X 3, answers questions appropriately - Respiratory Respiratory exam: Present: CTAB. Absent: accessory muscle use, rales, rhonchi, wheezes - Cardiovascular Cardiovascular exam: Present: RRR, +S1, +S2. Absent: diastolic murmur, gallop, rubs, systolic murmur Internal Medicine: Result - Labs CBC & Chem 7: 03/01/17 06:55 03/01/17 06:55 Labs: Cardiac Enzymes 03/01/17 03/02/17 03/02/17 Range/Units 20:18 02:24 08:26 Troponin I 8.23 H* 8.20 H* 7.90 H* (0-0.03) ng/mL - ABG Interpretation ABG results: PT/INR, D-dimer PT 11.9 Seconds (9.4-12.1) 03/01/17 06:55 - Impressions Impressions Chest X-Ray 03/01/17 15:33 IMPRESSION: No acute cardiopulmonary abnormality. D/ / Ruben Bueno / Ruben Bueno Interpreting Provider: Ruben Bueno Consult Discharge Plan - Plan Referrals: NONE,PCP [Primary Care Provider] -
--- NOTE | 2017-03-02 16:23 | Electrocardiograph Report ---
[address] [place], [place] [address] Test Date: 2017-02-28 Pat Name: Kevin Porras Department: [id number] Room: 3B46 Gender: M [employer] Helper: : 1950 Requested By: Berry Verma Order Number: [id number] Reading MD: Avinash Feliz Measurements Intervals [place] Rate: 71 P: 14 OR: 169 QRS: -5 QRSD: 100 T: 52 QT: 393 QTc: 415 Interpretive Statements SINUS RHYTHM SEPTAL MYOCARDIAL INFARCTION, OF INDETERMINATE AGE Electronically Signed On 03-02-2017 16:22:04 EST by Avinash Feliz
--- NOTE | 2017-03-02 17:36 | Internal Med Progress Note ---
Date of Encounter: 02/28/17 Time of Encounter: 16:00 - Assessment and plan (1) NSTEMI (non-ST elevated myocardial infarction) Current Visit: Yes Status: Acute Assessment and plan: Patient presented with chest pain and noted to have ischemic EKG changes along with troponin elevation, peak troponin 19.4. Patient was started on IV heparin drip, aspirin, Plavix and statin. Cardiology was consulted and patient underwent left heart catheterization today, which revealed severe three-vessel coronary artery disease, recommended elective bypass surgery. Patient was evaluated by cardiothoracic surgery, who recommended CABG on 03/06/17 to allow time for Plavix washout. Started on beta declan, Imdur, KEEGAN inhibitor. Echocardiogram was done which showed moderate systolic dysfunction with 40-45% ejection fraction, segmental wall motion abnormalities, mild left ventricular diastolic dysfunction. (2) CAD (coronary artery disease) Current Visit: Yes Status: Chronic Assessment and plan: Plan as above. Qualifiers: Coronary Disease-Associated Artery/Lesion type: [place] artery [place] vs. transplanted heart: [place] heart Associated angina: with unstable angina Qualified Code(s): I25.110 - Atherosclerotic heart disease of [place] coronary artery with unstable angina pectoris (3) Essential hypertension Current Visit: Yes Status: Chronic (4) CKD (chronic kidney disease) Current Visit: Yes Status: Suspected Assessment and plan: Serum creatinine noted to be stable, at around baseline. Continue to monitor closely, at risk for acute kidney injury due to recent left heart catheterization and [place]. Qualifiers: Chronic kidney disease stage: stage 3 (moderate) Qualified Code(s): N18.3 - Chronic kidney disease, stage 3 (moderate) - Subjective Interval history: Feels better; no chest pain, dyspnea, plapitations, orthopnea; returned from [facility] , plan for CABG in 5 days; no bleeding or hematoma at right groin cath site; - Constitutional Vitals: Temp Pulse Resp BP Pulse Ox 98.3 F 68 16 102/60 93 03/02/17 15:09 03/02/17 15:09 03/02/17 15:09 03/02/17 15:09 03/02/17 15:09 General appearance: Present: A&O X 3, answers questions appropriately - Respiratory Respiratory exam: Present: CTAB. Absent: accessory muscle use, rales, rhonchi, wheezes - Cardiovascular Cardiovascular exam: Present: RRR, +S1, +S2. Absent: diastolic murmur, gallop, rubs, systolic murmur - GI/Abdominal GI/Abdominal exam: Present: normal bowel sounds, soft, no peritoneal signs. Absent: distended, tenderness - Extremities Exam Extremities exam: Present: full ROM, warm, radial pulses palpable and symmetrical. Absent: calf tenderness, cyanotic, pedal edema Internal Medicine: Result - Labs CBC & Chem 7: 03/01/17 06:55 03/01/17 06:55 Labs: Cardiac Enzymes 03/01/17 03/02/17 03/02/17 Range/Units 20:18 02:24 08:26 Troponin I 8.23 H* 8.20 H* 7.90 H* (0-0.03) ng/mL - ABG Interpretation ABG results: PT/INR, D-dimer PT 11.9 Seconds (9.4-12.1) 03/01/17 06:55 - Impressions Impressions Chest X-Ray 03/01/17 15:33 IMPRESSION: No acute cardiopulmonary abnormality. D/ / Ruben Bueno / Ruben Bueno Interpreting Provider: Ruben Bueno Consult Discharge Plan - Plan Referrals: NONE,PCP [Primary Care Provider] -
[2017-03-02] MEDS: Heparin 25,000 UNIT/500 ML D5W 25,000 UNIT/500 ML MLS IVC SCH (21:10)
[2017-03-03] MEDS: Metoprolol XL (24 HR) Succ 25 MG TAB.ER.24H PO SCH (08:05)
[2017-03-03] MEDS: Gabapentin 300 MG CAPSULE PO SCH ×2 (08:06→20:20)
[2017-03-03] MEDS: Aspirin 325 MG TABLET PO SCH (08:06)
[2017-03-03] MEDS: amLODIPine 5 MG TABLET PO SCH (08:06)
[2017-03-03] MEDS: Isosorbide MONOnitrate (24 HR) 30 MG TAB.ER.24H PO SCH (08:06)
[2017-03-03] MEDS: Lisinopril 20 MG TABLET PO SCH ×2 (08:07→20:19)
--- NOTE | 2017-03-03 08:26 | Anesthesia Evaluation PreOp ---
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 History: TIA (no residual) Other Medical History: Renal (BPH and renal stones) Anesthesia History: No Prior Anesthetic Complications, Past Anesthesia (left hemicolectomy, AKS, greenlight laser, cataracts) Alcohol Use: recent (2 beers per night) Drug use: none, other Medications and Allergies Albuterol Sulfate [Ventolin Hfa] 2 puff IH QID PRN 02/28/17 [History] Amlodipine Besylate 10 mg PO DAILY 02/28/17 [History] Gabapentin [Neurontin] 600 mg PO BID 02/28/17 [History] Lisinopril [Zestril] 20 mg PO BID 02/28/17 [History] 3 Allergy/AdvReac Type Severity Reaction Status Date / Time atorvastatin AdvReac See Verified 03/03/17 01:24 Comments - Meds/Allergy Pre-op Review Medications Reviewed: Yes Allergies Reviewed: Yes Beta Blockers on Current Med List: Yes If Beta Blockers taken, Date/Time (Last Dose taken): today 635 Anesthesia Results - Labs 03/01/17 06:55 03/01/17 06:55 - Imaging Additional studies: cath: Impressions: There is severe three vessel coronary artery disease. The left ventricle is normal and has normal contractility EF 50% Carotid studies: Findings: Bilateral carotid system has nonstenotic plaque. echo: LVEF 40-45%. Normal LV chamber size and wall thickness. Segmental wall motion abnormalities. Mild left ventricular diastolic dysfunction. Normal right ventricular structure and function. No evidence of pulmonary hypertension. No significant valvular dysfunction. Anesthesia Exam Selected Entries 03/06/17 03:35 Temperature 97.6 F Pulse Rate 65 Respiratory Rate 17 Blood Pressure 115/72 O2 Sat by Pulse Oximetry 95 Weight: 110kg NPO (# of Hours): 8 - HEENT Pupil (Motor): EOMI Mallampati: II Teeth: Edentulous Oral Opening: Greater than 3 - CATALOGUE ILLUSTRATOR LOC: Oriented CATALOGUE ILLUSTRATOR Motor: Normal RUE, Normal LUE, Normal RLE, Normal LLE, Normal Face CATALOGUE ILLUSTRATOR Sensory: Normal: RUE, LUE, RLE, LLE, Face - Cardiac Rhythm: Regular Murmur: None - Pulmonary Breath Sounds: bilateral Clear Respiratory Effort: Symmetrical Anesthesia Assess/Plan ASA Score: 4 Modified Moro Scale for Level of Consciousness: Cooperative, oriented, and tranquil Anesthetic Plan: General Monitoring Plan: Standard Monitors, A-Line, PAC, AUSTEN Recovery Plan: ICU (Discussed GA, lines, AUSTEN and blood products, agrees to proceed)
--- NOTE | 2017-03-03 10:47 | Cardiothoracic Progress Note ---
Date of Encounter: 03/03/17 Time of Encounter: 10:46 - Assessment and plan (1) NSTEMI (non-ST elevated myocardial infarction) Current Visit: Yes Status: Acute The patient is a 66-year-old hypertensive man with known CAD. He experienced an acute NSTEMI on Monday, February 27, 2017. He underwent cardiac catheterization today was found to have severe 2 vessel CAD and an LVEF 40%. He has been recommended for CABG. I concur with this recommendation. The STS risk calculator reveals an operative mortality risk 0.95%, permanent stroke risk 1.47 %, deep sternal wound infection risk 0.30%, renal failure risk 2.01%, and reoperation risk 4.57%. The patient did receive a loading dose of Plavix followed by a daily dose of Plavix his morning. This will be discontinued and the patient's CABG will be delayed until Monday, March 06, 2017 to allow the antiplatelet effect to diminish. The assessment and plan as outlined above was discussed with the patient and/or family members who expressed understanding and agreement. All questions were answered. - Subjective Interval history: The patient remained hemodynamically stable overnight. He had no complaints of chest pain or shortness of breath Vital Signs, Last 4 Hours Temp Pulse Resp BP Pulse Ox 03/03/17 07:09 97.9 F 59 16 143/77 95 Clinical Data, last 8 Hours Output, Urine Amount 200 Output, Urine Amount 800 Weight 03/01/17 03/02/17 03/03/17 23:59 23:59 23:59 Weight 109.996 kg 114.3 kg - Physical Examination General: Conversant, No Apparent Distress Neck: No JVD, Normal carotid pulses Cardiac: Reg Rate and Rhythm, Normal S1 and S2, No Murmur Lungs: Normal Breath Sounds, No Wheeze, Rales, Rhonchi Neuro: Alert and responsive, No focal deficits noted Vascular: Normal capillary refill Musculoskeletal: No Chest Wall Tenderness Extremities: No Clubbing, No Cyanosis, No Edema - Labs 03/01/17 06:55 03/01/17 06:55 Lab Results, Last 24 hours 03/02/17 03/03/17 18:21 03:47 APTT 33.1 87.3 H D Consult Discharge Plan - Plan Referrals: NONE,PCP [Primary Care Provider] -
--- NOTE | 2017-03-03 13:39 | Internal Med Progress Note ---
Date of Encounter: 03/03/17 Time of Encounter: 13:37 - Assessment and plan (1) NSTEMI (non-ST elevated myocardial infarction) Current Visit: Yes Status: Acute Assessment and plan: Underwent cardiac show multivessel disease CABG is planned for Sunday. off for Plavix washout (2) Cardiomyopathy Current Visit: Yes Status: Acute Assessment and plan: Mild ischemic LV dysfunction able 40% Qualifiers: Cardiomyopathy type: ischemic Qualified Code(s): I25.5 - Ischemic cardiomyopathy (3) Essential hypertension Current Visit: Yes Status: Chronic Assessment and plan: Blood pressure well controlled (4) CKD (chronic kidney disease) Current Visit: Yes Status: Resolved Assessment and plan: Resolved creatinine back to normal Qualifiers: Chronic kidney disease stage: stage 3 (moderate) Qualified Code(s): N18.3 - Chronic kidney disease, stage 3 (moderate) - Subjective Interval history: Patient seen and examined family in the room no chest pain or shortness of breath - Constitutional Vitals: Temp Pulse Resp BP Pulse Ox 97.3 F L 57 16 111/70 97 03/03/17 10:49 03/03/17 10:49 03/03/17 10:49 03/03/17 10:49 03/03/17 10:49 General appearance: Present: A&O X 3, answers questions appropriately - Eye Eye exam: Present: PERRL, conjuntiva pink, sclera anicteric Pupils: Present: PERRL - Neck Neck exam general surgery: Present: supple, trachea midline. Absent: lymphadenopathy - Respiratory Respiratory exam: Present: CTAB. Absent: accessory muscle use, rales, rhonchi, wheezes - Cardiovascular Cardiovascular exam: Present: RRR, +S1, +S2. Absent: diastolic murmur, gallop, rubs, systolic murmur - GI/Abdominal GI/Abdominal exam: Present: normal bowel sounds, soft, no peritoneal signs. Absent: distended, tenderness - Extremities Exam Extremities exam: Present: warm, radial pulses palpable and symmetrical. Absent : calf tenderness, cyanotic, pedal edema Internal Medicine: Result - Labs CBC & Chem 7: 03/01/17 06:55 03/01/17 06:55 - ABG Interpretation ABG results: PT/INR, D-dimer PT 11.9 Seconds (9.4-12.1) 11/30/17 06:55 Consult Discharge Plan - Plan Referrals: NONE,PCP [Primary Care Provider] -
[2017-03-03] MEDS: *HR* Heparin 5,000 UNIT/ML VIAL SQ SCH (17:02)
[2017-03-03 21:49] LABS: CK-BB (CK isoenzymes) 0 % (0-0); CK-MB (CK isoenzymes) 3 % (0-4); CK-MM (CK-isoenzymes) 97 % (96-100)
[2017-03-03 21:49] LABS: CK-BB (CK isoenzymes) 0 % (0-0); CK-MB (CK isoenzymes) 4 % (0-4); CK-MM (CK-isoenzymes) 96 % (96-100)
[2017-03-04] MEDS: *HR* Heparin 5,000 UNIT/ML VIAL SQ SCH ×2 (05:52→17:47)
[2017-03-04] MEDS: Metoprolol XL (24 HR) Succ 25 MG TAB.ER.24H PO SCH (08:02)
[2017-03-04] MEDS: amLODIPine 5 MG TABLET PO SCH (08:03)
[2017-03-04] MEDS: Lisinopril 20 MG TABLET PO SCH ×2 (08:03→20:38)
[2017-03-04] MEDS: Isosorbide MONOnitrate (24 HR) 30 MG TAB.ER.24H PO SCH (08:03)
[2017-03-04] MEDS: Gabapentin 300 MG CAPSULE PO SCH ×2 (08:03→20:39)
[2017-03-04] MEDS: Aspirin 325 MG TABLET PO SCH (08:09)
--- NOTE | 2017-03-04 09:37 | Internal Med Progress Note ---
Date of Encounter: 03/04/17 Time of Encounter: 09:35 - Assessment and plan (1) NSTEMI (non-ST elevated myocardial infarction) Current Visit: Yes Status: Acute Assessment and plan: Status post cardiac catheterization with 2 vessel CAD and recommended CABG. He is 40%. Scheduled for surgery on 03/06/2017. Moderate risk for complications. Holding Plavix. On aspirin, statin and beta declan (2) Cardiomyopathy Current Visit: Yes Status: Acute Assessment and plan: Continue lisinopril. Well compensated at this time Qualifiers: Cardiomyopathy type: ischemic Qualified Code(s): I25.5 - Ischemic cardiomyopathy (3) CAD (coronary artery disease) Current Visit: Yes Status: Chronic Assessment and plan: Management as above Qualifiers: Coronary Disease-Associated Artery/Lesion type: [place] artery [place] vs. transplanted heart: [place] heart Associated angina: with unstable angina Qualified Code(s): I25.110 - Atherosclerotic heart disease of [place] coronary artery with unstable angina pectoris (4) Essential hypertension Current Visit: Yes Status: Chronic Assessment and plan: Well-controlled - Subjective Interval history: No chest pain. No shortness of breath. No pedal edema. Patient sitting up in chair. Comfortable. - Constitutional Vitals: Temp Pulse Resp BP Pulse Ox 97.8 F 71 16 129/72 95 03/04/17 07:34 03/04/17 07:34 03/04/17 07:34 03/04/17 07:34 03/04/17 07:34 General appearance: Present: A&O X 3, answers questions appropriately - Respiratory Respiratory exam: Present: CTAB. Absent: accessory muscle use, rales, rhonchi, wheezes - Cardiovascular Cardiovascular exam: Present: RRR, +S1, +S2. Absent: diastolic murmur, gallop, rubs, systolic murmur - GI/Abdominal GI/Abdominal exam: Present: normal bowel sounds, soft, no peritoneal signs. Absent: distended, tenderness Internal Medicine: Result - Labs CBC & Chem 7: 03/01/17 06:55 03/01/17 06:55 - ABG Interpretation ABG results: PT/INR, D-dimer PT 11.9 Seconds (9.4-12.1) 03/01/17 06:55 Consult Discharge Plan - Plan Referrals: NONE,PCP [Primary Care Provider] -
[2017-03-05] MEDS: *HR* Heparin 5,000 UNIT/ML VIAL SQ SCH ×2 (05:40→18:05)
[2017-03-05] MEDS: amLODIPine 5 MG TABLET PO SCH (08:41)
[2017-03-05] MEDS: Aspirin 325 MG TABLET PO SCH (08:42)
[2017-03-05] MEDS: Isosorbide MONOnitrate (24 HR) 30 MG TAB.ER.24H PO SCH (08:42)
[2017-03-05] MEDS: Lisinopril 20 MG TABLET PO SCH ×2 (08:42→20:16)
[2017-03-05] MEDS: Metoprolol XL (24 HR) Succ 25 MG TAB.ER.24H PO SCH (08:42)
[2017-03-05] MEDS: Gabapentin 300 MG CAPSULE PO SCH ×2 (08:42→20:16)
[2017-03-05 08:57] LABS: CK Total (Ck Isoenzymes) 716 U/L (20-200)
[2017-03-05 09:36] LABS: CK Total (Ck Isoenzymes) 563 U/L (20-200)
--- NOTE | 2017-03-05 10:07 | Cardiothoracic Progress Note ---
Date of Encounter: 03/05/17 Time of Encounter: 09:52 - Assessment and plan (1) NSTEMI (non-ST elevated myocardial infarction) Current Visit: Yes Status: Acute The patient is a 66-year-old hypertensive man with known CAD. He experienced an acute NSTEMI on Monday, February 27, 2017. He underwent cardiac catheterization today was found to have severe 2 vessel CAD and an LVEF 40%. He is scheduled for CABG in the morning. The assessment and plan as outlined above was discussed with the patient and/or family members who expressed understanding and agreement. All questions were answered. - Subjective Interval history: The patient remained hemodynamically stable overnight. He had no complaints of chest pain or shortness of breath Vital Signs, Last 4 Hours Temp Pulse Resp BP Pulse Ox 03/05/17 07:37 98.0 F 60 20 117/72 95 Weight 03/03/17 03/04/17 03/05/17 23:59 23:59 23:59 Weight 113.908 kg 110.813 kg - Physical Examination General: Conversant, No Apparent Distress Neck: No JVD, Normal carotid pulses Cardiac: Reg Rate and Rhythm, Normal S1 and S2, No Murmur Lungs: Normal Breath Sounds, No Wheeze, Rales, Rhonchi Neuro: Alert and responsive, No focal deficits noted Vascular: Normal capillary refill Musculoskeletal: No Chest Wall Tenderness Extremities: No Clubbing, No Cyanosis, No Edema, Normal Pulses - Labs 03/01/17 06:55 03/01/17 06:55 Consult Discharge Plan - Plan Referrals: NONE,PCP [Primary Care Provider] -
--- NOTE | 2017-03-05 10:49 | Internal Med Progress Note ---
Date of Encounter: 03/05/17 Time of Encounter: 08:30 - Assessment and plan (1) NSTEMI (non-ST elevated myocardial infarction) Current Visit: Yes Status: Acute Assessment and plan: Doing well overall. Scheduled for CABG surgery tomorrow. Keep nothing by mouth after midnight. Moderate risk for complications. Continue current medications. Continue to hold Plavix. (2) Cardiomyopathy Current Visit: Yes Status: Acute Assessment and plan: Asymptomatic and well compensated. Qualifiers: Cardiomyopathy type: ischemic Qualified Code(s): I25.5 - Ischemic cardiomyopathy (3) CAD (coronary artery disease) Current Visit: Yes Status: Chronic Assessment and plan: On appropriate meds including aspirin, statin, lisinopril and beta declan. Qualifiers: Coronary Disease-Associated Artery/Lesion type: [place] artery [place] vs. transplanted heart: [place] heart Associated angina: with unstable angina Qualified Code(s): I25.110 - Atherosclerotic heart disease of [place] coronary artery with unstable angina pectoris (4) Essential hypertension Current Visit: Yes Status: Chronic Assessment and plan: Blood pressure is well controlled at this time. - Subjective Interval history: Patient is awake and alert. No new complaints at this time. Tolerating oral diet well. Scheduled for surgery tomorrow morning. - Constitutional Vitals: Temp Pulse Resp BP Pulse Ox 98.0 F 60 20 117/72 95 03/05/17 07:37 03/05/17 07:37 03/05/17 07:37 03/05/17 07:37 03/05/17 07:37 General appearance: Present: A&O X 3, answers questions appropriately - Neck Neck exam general surgery: Present: supple, trachea midline. Absent: lymphadenopathy - Respiratory Respiratory exam: Present: CTAB. Absent: accessory muscle use, rales, rhonchi, wheezes - Cardiovascular Cardiovascular exam: Present: RRR, +S1, +S2. Absent: diastolic murmur, gallop, rubs, systolic murmur - GI/Abdominal GI/Abdominal exam: Present: normal bowel sounds, soft, no peritoneal signs. Absent: distended, tenderness - Extremities Exam Extremities exam: Present: warm, radial pulses palpable and symmetrical. Absent : calf tenderness, cyanotic, pedal edema - Neurological Exam Neurological exam: Present: alert, oriented X3, no focal deficits. Absent: facial droop, speech deficit - Skin Skin exam: Present: dry, intact Internal Medicine: Result - Labs CBC & Chem 7: 03/01/17 06:55 03/01/17 06:55 Labs: Cardiac Enzymes 03/01/17 03/01/17 Range/Units 00:23 06:55 CK-MB (CK-2) 4 3 (0-4) % - ABG Interpretation ABG results: PT/INR, D-dimer PT 11.9 Seconds (9.4-12.1) 03/01/17 06:55 Consult Discharge Plan - Plan Referrals: NONE,PCP [Primary Care Provider] -
[2017-03-06] MEDS: *HR* Heparin 5,000 UNIT/ML VIAL SQ SCH (05:30)
[2017-03-06] MEDS ORDERED: CeFAZolin Syr 2,000MG/20 ML 2,000 MG/20 ML SYRINGE IVPB ONE (06:00)
[2017-03-06] MEDS: Metoprolol XL (24 HR) Succ 25 MG TAB.ER.24H PO SCH (06:36)
[2017-03-06] MEDS: Chlorhexidine Rinse 15 ML MOUTHWASH MM SCH ×3 (06:37→21:07)
[2017-03-06] MEDS ORDERED: Tranexamic Acid 1,000 MG/10 ML VIAL ONE ×2 (06:54→08:56)
[2017-03-06] MEDS ORDERED: *HR* Etomidate 20 MG/10 ML AMPUL IVP ONE (06:54)
[2017-03-06] MEDS ORDERED: *HR* Rocuronium Bromide 50 MG/5 ML VIAL ONE ×2 (06:54→11:24)
[2017-03-06] MEDS ORDERED: *HR* Phenylephrine 10 MG/ML VIAL ONE (06:54)
[2017-03-06] MEDS ORDERED: Famotidine 20 MG/2 ML VIAL ONE (06:54)
[2017-03-06] MEDS ORDERED: Protamine Sulfate 250 MG/25 ML VIAL IVP ONE (06:54)
[2017-03-06] MEDS ORDERED: *HR* Midazolam HCl 5 MG/5 ML VIAL IVP ONE ×2 (07:01→11:23)
[2017-03-06] MEDS ORDERED: *HR* FentaNYL (PF) 1,000 MCG/20 ML VIAL ONE (07:01)
[2017-03-06] MEDS ORDERED: Nitroglycerin 25 MG/250 ML INFUS..BTL IVC ONE ×2 (07:04→10:50)
[2017-03-06] MEDS ORDERED: NiCARdipine 2.5 MG/10 ML Syringe IVPB ONE (07:04)
[2017-03-06 08:01] LABS: ABG Base Excess 0 mEq/L (-2 to 3); ABG Chloride 107 mEq/L (98-107); ABG Glucose 111 mg/dL (60-95); ABG HCO3 28 mEq/L (21-27); ABG Ionized Calcium 1.26 mmol/L (1.15-1.35); ABG Oxygen Saturation 97 % (95-98); ABG PCO2 55 mmHg (35-45); ABG PH 7.31 pH Units (7.32-7.45); ABG PO2 98 mmHg (85-104); ABG TCO2 29 mEq/L (20-26)
[2017-03-06] MEDS ORDERED: Lidocaine Jelly 6ml 1 APPL/6 ML JEL.PF.APP ONE (08:11)
--- NOTE | 2017-03-06 09:08 | Anesthesia Procedures ---
Date of Encounter: 03/06/17 Time of Encounter: 07:50 Procedures: Anesthesia - Arterial Line Consent obtained: written consent Time out performed: Yes Sedation: Versed (mg): 2 Sedation: Fentanyl (mcg): 100 Supplemental Oxygen via Nasal Cannula (L/min): 2 Local Anesthetic: Lidocaine 1% Amount of Anesthetic used (mls): 1 Size (Gauge): 20 Length (inches): 5 Technique Used: sterile prep, guide wire technique Post-Procedure: line taped into place, dry sterile dressing placed Patient tolerated procedure: well, no complications Complications: none Site: Radial R (attempt x 2) - Central Line Placement Right IJ Consent obtained: written consent Time out performed: Yes Patient placed on monitor/pulse ox: Yes prep: mask, gown, gloves Central line prep: Chlorhexidine scrub Ultrasound used for placement: Yes Technique: Seldinger Lumen Inserted: Introducer Post procedure: sutured in place, good blood return, all ports aspirated, flushed, capped, sterile dressing applied Patient tolerated procedure: well, no complications (attempt x 1 for introducer placement, easy. Codorus placed without arrythmias, wedge approx 70cm)
[2017-03-06 09:28] LABS: ABG Base Excess -8 mEq/L (-2 to 3); ABG Chloride 121 mEq/L (98-107); ABG Glucose 76 mg/dL (60-95); ABG HCO3 18 mEq/L (21-27); ABG Ionized Calcium 0.63 mmol/L (1.15-1.35); ABG Oxygen Saturation 98 % (95-98); ABG PCO2 33 mmHg (35-45); ABG PH 7.33 pH Units (7.32-7.45); ABG PO2 102 mmHg (85-104); ABG TCO2 19 mEq/L (20-26)
[2017-03-06 10:10] LABS: ABG Base Excess 5 mEq/L (-2 to 3); ABG Chloride 102 mEq/L (98-107); ABG Glucose 151 mg/dL (60-95); ABG HCO3 30 mEq/L (21-27); ABG Ionized Calcium 1.04 mmol/L (1.15-1.35); ABG Oxygen Saturation 100 % (95-98); ABG PCO2 46 mmHg (35-45); ABG PH 7.42 pH Units (7.32-7.45); ABG PO2 392 mmHg (85-104); ABG TCO2 31 mEq/L (20-26)
[2017-03-06] MEDS ORDERED: Albumin Human 5% 50.0 GM/1,000 ML VIAL ONE (10:50)
[2017-03-06 11:05] LABS: ABG Base Excess 3 mEq/L (-2 to 3); ABG Chloride 104 mEq/L (98-107); ABG Glucose 116 mg/dL (60-95); ABG HCO3 28 mEq/L (21-27); ABG Ionized Calcium 1.11 mmol/L (1.15-1.35); ABG Oxygen Saturation 100 % (95-98); ABG PCO2 44 mmHg (35-45); ABG PH 7.41 pH Units (7.32-7.45); ABG PO2 326 mmHg (85-104); ABG TCO2 29 mEq/L (20-26)
[2017-03-06 11:12] LABS: ABG Base Excess 1 mEq/L (-2 to 3); ABG Chloride 106 mEq/L (98-107); ABG Glucose 80 mg/dL (60-95); ABG HCO3 25 mEq/L (21-27); ABG Ionized Calcium 1.28 mmol/L (1.15-1.35); ABG Oxygen Saturation 98 % (95-98); ABG PCO2 38 mmHg (35-45); ABG PH 7.43 pH Units (7.32-7.45); ABG PO2 102 mmHg (85-104); ABG TCO2 26 mEq/L (20-26)
[2017-03-06] MEDS ORDERED: *HR* Morphine 2 MG/ML SYRINGE IVP PRN (12:07)
[2017-03-06] MEDS ORDERED: Ondansetron 4 MG/2 ML VIAL IVP PRN (12:07)
[2017-03-06] MEDS ORDERED: Naloxone 0.4 MG/ML INJ IVP PRN (12:07)
[2017-03-06] MEDS ORDERED: *HR* Dextrose 50 % in Water (Syg) 50 ML SYRINGE IVP PRN (12:07)
[2017-03-06] MEDS ORDERED: Acetaminophen 650 MG RECTAL SUPP RC PRN (12:07)
[2017-03-06] MEDS ORDERED: Potassium Chloride 40 MEQ/200 ML BAG IVPB PRN (12:07)
[2017-03-06] MEDS ORDERED: Insulin Regular, Human 100 UNIT/ML IV PRN (12:07)
[2017-03-06] MEDS ORDERED: Acetaminophen 325 MG TABLET PO PRN (12:07)
--- NOTE | 2017-03-06 12:07 | Operative Note ---
Date of procedure: 03/06/17 Pre-op diagnosis: NSTEMI Post-op diagnosis: same Procedure: 1. CABG 3 (PACHECO to LAD, sequential SVG to D1 then OM 2). 2. Endoscopic vein harvesting, greater saphenous vein from right lower extremity. Implants: None. Complications: None. Anesthesia: PREMA Surgeon: Marcelino Cortes Housekeeping Manager: Avinash Carrillo Specimen: None. Condition: stable Disposition: ICU Procedure in Detail: INDICATIONS FOR OPERATION: The patient is a 66 year old hypertensive man with known CAD. The patient's cardiac history dates to 1989 which time he suffered an acute myocardial infarction. At that time he was treated medically and had no intervention. He did well until approximately one month ago when he began noticing exertional, nonradiating substernal chest pain. On Sunday, number 19/11/2016 the patient had sudden onset of severe, unrelenting substernal chest pain radiating to his shoulders and down both arms. He had associated shortness of breath, diaphoresis , and nausea. He decided not to seek medical attention and rested at home. The following morning, he had no substernal chest pain. However, he had recurrent substernal chest pain with activity. He went to work and experienced intermittent pain throughout the day. He was encouraged by a coworker to seek medical attention. The patient was evaluated at [facility] and found to have elevated troponin I levels consistent with an acute NSTEMI. He was treated medically and transferred to [facility] for further cardiac care. He was given aspirin, beta declan, and Plavix, and had relief of his symptoms. He was recommended for cardiac catheterization. Catheterization performed today showed severe two-vessel CAD and an LVEF 40%. In particular, the patient had a completely occluded proximal LAD which filled distally via left left collaterals, an 80% proximal D1 lesion, an 80% proximal OM1 lesion. The RCA appeared to be small and nondominant. He has been recommended for CABG. The patient had been given a loading dose of Plavix at [facility] and an additional daily dose at [facility]. The patient's operation was delayed for 5 days to allow the Plavix effect to dissipate. FINDINGS AT OPERATION: The aorta was of normal caliber and had some 'shaggy' lesions within the midportion. The coronary arteries measure approximately 2-3 mm in diameter had mild distal disease. Greater saphenous vein was harvested endoscopically from the right lower extremity from the knee to the groin and was of good quality. The total bypass time was 61 minutes, cross-clamp time 35 minutes, intentional hypothermia 34.6C. DESCRIPTION OF OPERATION: After obtaining informed consent from the patient, he was taken to the operating room where satisfactory general endotracheal anesthetic was induced. Appropriate monitoring lines were placed, and the patient's chest, abdomen, and lower extremity were prepped and draped in sterile fashion. The greater saphenous vein was harvested endoscopically from the right lower extremity from the knee to the groin it was of good quality. The subtenon's tissue and skin edges were reapproximated using running Vicryl suture. Simultaneously a standard median sternotomy incision was made in the sternum divided. The PACHECO was taken down from its bed and side branches divided between hemoclips. The sternum was then in the upper cardiac opened and reflected laterally. The patient was prepared for cannulation by placing pursestring sutures in the distal ascending aorta, mid-ascending aorta, and right atrial appendage. The patient was heparinized and when used to was created and 200 seconds, the distal ascending aorta was cannulated followed by placement of a dual stage venous cannula through the right atrial appendage and into the inferior vena cava. A stab-in antegrade metabolic and was placed in the mid-ascending aorta. The patient was placed on bypass and the temperature allowed to drift to 34.6 C. The distal targets were identified and the aorta was crossclamped. The patient received 700 mL of cold antegrade crystalloid cardioplegia through the aortic root and the patient's heart appeared rapid diastolic arrest. The OM to branch was opened with a [place] blade and the vein was anastomosed in an end-to-side fashion using running 7-0 Prolene suture. The anastomosis found to be hemostatic. The D1 branch was opened with [place] blade and the vein was opened in longitudinal fashion so the [id number] anastomosis could be completed using a running 7-0 Prolene suture. The anastomosis was found to be hemostatic and the patient received a final dose of cold antegrade crystalloid cardioplegia to the aortic root. The LAD was opened with a [place] blade and the PACHECO was anastomosed in an end-to-side fashion to the LAD using a running 7-0 Prolene suture. The anastomosis found to be hemostatic and the mammary pedicle was tacked to the epicardium using an interrupted 5-0 silk suture. Rewarming was begun during this anastomosis. The aortic cross-clamp was released and the heart distended. The vein was measured and cut at appropriate length. A partial occluding clamps placed across the midascending aorta and the antegrade metabolic cannula was removed. The aortotomy site was enlarged performing a punch and the vein was anastomosed in an end-to-side fashion to the aorta using a running 5-0 Prolene suture. The vein graft was occluded with bulldog clamp and de-aired with a 25-gauge needle prior to removing the partial occluding clamp. The proximal distal anastomoses were found to be hemostatic and the proximal anastomosis was marked with a radiopaque loop. Two right ventricular temporary epicardial pacing was replaced, and 3 chest suture placed, 2 in the mediastinum and one into the left pleural space. During rewarming the patient's heart regained normal sinus rhythm spontaneously. With the patient's systemic temperature is 36C he was ventilated and received volume. He was weaned bypass and required inotropic support. Protamine was administered and the aortic and venous cannula removed. The pursestring sutures were secured. The aortic cannulation site was reinforced with a pledgeted 4-0 Prolene suture and the venous cannulation site was reinforced with a running 4 Prolene suture. After the protamine had been administered and allowed to circulate for some time, the patient appeared to be excessively oozy. A pack of platelets was administered to help address the possible Plavix antiplatelet effect. The pericardium was loosely approximated in midline using interrupted 0 silk suture. The sternum was reapproximated using sternal wires and and the pectoralis major fascia, rectus abdominis fascia , subcutaneous tissue, and skin edges were reapproximated using running Vicryl sutures. A negative pressure sterile dressing was applied to the sternotomy incision. The patient was transferred to the ICU in satisfactory postoperative condition. There were no intraoperative complications and the instrument, needle, and sponge count were correct at end of operation.
[2017-03-06 12:37] LABS: Basophils % 0.2 %; Eosinophils # 0.1 K/mcL (0.0-0.6); Eosinophils % 1.2 %; Hematocrit 34.1 % (37.5-50.1); Immature Granulocytes % 0.9 % (0-4); Lymphocytes # 1.5 K/mcL (0.6-4.6); Lymphocytes % 12.8 %; Mean Corpuscular Volume 91.2 fL (83.0-100.0); Mean Platelet Volume 10.9 fL (9.4-12.4); Monocytes # 0.9 K/mcL (0.0-1.3); Monocytes % 7.6 %; Neutrophils # 9.3 K/mcL (1.6-8.9); Platelet Count 149 K/mcL (140-400); Red Blood Count 3.74 M/mcL (4.19-5.50); Red Cell Distribution Width 12.1 % (11.5-14.5); Segmented Neutrophils % 77.3 %
[2017-03-06 12:38] LABS: Hemoglobin 11.6 g/dL (12.9-16.9)
[2017-03-06 12:43] LABS: ABG Base Excess 1 mEq/L (-2 to 3); ABG HCO3 28 mEq/L (21-27); ABG Oxygen Saturation 92 % (95-98); ABG PCO2 50 mmHg (35-45); ABG PH 7.35 pH Units (7.32-7.45); ABG PO2 68 mmHg (85-104); ABG TCO2 29 mEq/L (20-26)
[2017-03-06 12:46] LABS: INR 1.3; Prothrombin Time 14.1 Seconds (9.4-12.1)
[2017-03-06 12:50] LABS: Activated Partial Thrombo Time 36.2 Seconds (26.0-36.0)
[2017-03-06 12:52] LABS: BUN/Creatinine Ratio 13 (6-26); Blood Urea Nitrogen 13 mg/dL (8-26); Calcium 8.4 mg/dL (8.6-10.8); Carbon Dioxide 25 mEq/L (19-29); Chloride 108 mEq/L (98-109); Glucose 90 mg/dL (70-99); Magnesium 2.3 mg/dL (1.6-2.6); Osmolality,Calculated 296 (280-300); Potassium 3.9 mEq/L (3.5-4.5); Sodium 143 mEq/L (136-145); eGFR For African Americans > 60 (> 60); eGFR For Non-African Americans > 60 (> 60)
[2017-03-06] MEDS: Nitroglycerin 25 MG/250 ML INFUS..BTL IVC SCH ×2 (13:20→21:07)
--- NOTE | 2017-03-06 13:27 | Urology Procedure Note ---
Date of Encounter: 03/06/17 Time of Encounter: 08:00 Procedures:Urology - Catheter Insertion (Urinary) Prophylactic antibiotics given: Yes Bladder Scan/Ultrasound used before catheterization: No Estimated amount of urin (mLs): 100 Preparation: Povidone-Iodine Type of catheter inserted: 2 way Catheter [place] Size: 16 Topical anesthesia used: Yes Urine Appearance: Clear Complications: none Additional comments: unable to pass cath with urojet. passed zipwire into bladder without resistance. backloaded the cath on the zipwire and it passed into the bladder without requiring dilation. return of clear urine. suspect false passage. ok to remove cath per primary service
[2017-03-06] MEDS: *HR* Morphine 2 MG/ML SYRINGE IVP PRN ×2 (13:32→15:28)
[2017-03-06] MEDS: 0.9 % Sodium Chloride w KCl 20 MEQ/1,000 ML MLS IVC SCH (13:35)
[2017-03-06] MEDS: Pantoprazole 40 MG VIAL IVP SCH ×2 (13:36→13:37)
[2017-03-06] MEDS: *HR* OxyCODONE/APAP 5/325 TABLET PO PRN (13:58)
[2017-03-06] MEDS ORDERED: Mannitol 25% vial 12.5 GM/50 ML VIAL IVP ONE (14:04)
[2017-03-06] MEDS ORDERED: Albumin Human 25% 25 GM/100 ML IV.SOLN IV ONE (14:04)
[2017-03-06] MEDS ORDERED: Lidocaine 2% Syringe 100 MG/5 ML IV ONE (14:04)
[2017-03-06] MEDS ORDERED: *HR* Magnesium Sulfate 2 GM/50 ML PIGGYBACK IVPB ONE (14:04)
[2017-03-06] MEDS ORDERED: *HR* Phenylephrine 10 MG/ML VIAL IVC ONE (14:04)
[2017-03-06] MEDS ORDERED: *HR* Heparin 10,000 UNIT/10 ML VIAL IV ONE (14:04)
[2017-03-06] MEDS ORDERED: Sodium Bicarbonate 50 MEQ/50 ML VIAL IVC ONE (14:04)
[2017-03-06] MEDS ORDERED: 0.9 % Sodium Chloride 250 ML ONE (15:22)
[2017-03-06] MEDS: CeFAZolin Premix DUPLEX 2,000 MG/50 ML BAG IVPB SCH ×2 (17:01→23:35)
[2017-03-06 17:03] LABS: ABG Base Excess -2 mEq/L (-2 to 3); ABG HCO3 25 mEq/L (21-27); ABG Oxygen Saturation 89 % (95-98); ABG PCO2 49 mmHg (35-45); ABG PH 7.31 pH Units (7.32-7.45); ABG PO2 63 mmHg (85-104); ABG TCO2 26 mEq/L (20-26)
[2017-03-06] MEDS: Metoclopramide 10 MG/2 ML VIAL IVP SCH ×2 (17:16→23:35)
[2017-03-06 17:18] LABS: BUN/Creatinine Ratio 11 (6-26); Blood Urea Nitrogen 13 mg/dL (8-26); Calcium 8.4 mg/dL (8.6-10.8); Carbon Dioxide 22 mEq/L (19-29); Chloride 107 mEq/L (98-109); Glucose 128 mg/dL (70-99); Osmolality,Calculated 294 (280-300); Potassium 4.8 mEq/L (3.5-4.5); Sodium 141 mEq/L (136-145); eGFR For African Americans > 60 (> 60); eGFR For Non-African Americans > 60 (> 60)
[2017-03-06 17:19] LABS: Basophils % 0.2 %; Eosinophils % 0.2 %; Hematocrit 30.5 % (37.5-50.1); Hemoglobin 10.5 g/dL (12.9-16.9); Immature Granulocytes % 0.6 % (0-4); Lymphocytes # 0.8 K/mcL (0.6-4.6); Lymphocytes % 6.2 %; Mean Corpuscular HGB Conc 34.4 g/dL (31.6-35.5); Mean Corpuscular Hemoglobin 31.8 pg (28.0-33.3); Mean Corpuscular Volume 92.4 fL (83.0-100.0); Monocytes # 1.1 K/mcL (0.0-1.3); Monocytes % 8.6 %; Neutrophils # 10.9 K/mcL (1.6-8.9); Platelet Count 143 K/mcL (140-400); Red Cell Distribution Width 12.1 % (11.5-14.5); Segmented Neutrophils % 84.2 %
[2017-03-06 17:38] LABS: ABG Base Excess 1 mEq/L (-2 to 3); ABG HCO3 27 mEq/L (21-27); ABG Oxygen Saturation 92 % (95-98); ABG PCO2 50 mmHg (35-45); ABG PH 7.35 pH Units (7.32-7.45); ABG PO2 67 mmHg (85-104); ABG TCO2 29 mEq/L (20-26); Blood Gas Modality PS; Blood Gas PEEP 5 cm H2O; Blood Gas Pressure Support 10 cm H2O
[2017-03-06 18:11] LABS: ABG Base Excess 2 mEq/L (-2 to 3); ABG HCO3 29 mEq/L (21-27); ABG Oxygen Saturation 92 % (95-98); ABG PCO2 57 mmHg (35-45); ABG PH 7.32 pH Units (7.32-7.45); ABG PO2 71 mmHg (85-104); ABG TCO2 31 mEq/L (20-26)
--- NOTE | 2017-03-06 18:35 | Anesthesia Evaluation Post Op ---
Date of Encounter: 03/06/17 Time of Encounter: 18:34 - Vital Signs Vital Signs: Selected Entries 03/06/17 17:35 Respiratory Rate 15 Blood Pressure 108/49 O2 Sat by Pulse Oximetry 93 Fraction of Inspired Oxygen % 28 Oxygen Flow Rate (LPM) 2 Oxygen Delivery Method Nasal Cannula - Lungs Lungs: Clear Ascult./Percussion - Airway Airway: Non-obstructed - Cardiovascular Regular Rate - Mental Status Mental Status: Alert & Oriented, Answers Appropriately - Pain Pain Scale: 3 Pain Scale used: Numeric (1 - 10) - Nausea Vomiting Nausea Vomiting: Not Present - Hydration Hydration: NPO, Willson catheter Notes: 03/06/17 18:34 Patient has been extubated. Minimal blood loss via chest tubes. No apparent anesthesia issues.
[2017-03-06] MEDS: Gabapentin 300 MG CAPSULE PO SCH ×2 (20:09→21:06)
[2017-03-06] MEDS: Norepinephrine 4 MG in D5% in Water 250 ML IVC SCH (20:10)
[2017-03-06] MEDS: niCARdipine 40 MG/200 ML MLS IVC SCH ×2 (20:10→21:03)
[2017-03-06] MEDS: Insulin Human Regular 100 UNIT in 0.9 % Sodium Chloride 100 ML IVC SCH (21:07)
--- NOTE | 2017-03-06 22:20 | Electrocardiograph Report ---
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
[2017-03-07] MEDS: Insulin Human Regular 100 UNIT in 0.9 % Sodium Chloride 100 ML IVC SCH (00:08)
--- NOTE | 2017-03-07 00:12 | Internal Med Progress Note ---
Date of Encounter: 03/06/17 Time of Encounter: 18:45 - Assessment and plan (1) S/P CABG x 3 Current Visit: Yes Status: Acute Assessment and plan: 03/06/17. Cardiothoracic surgery following. (2) NSTEMI (non-ST elevated myocardial infarction) Current Visit: Yes Status: Acute Assessment and plan: Post operative recommendations per Cardiothoracic Surgery (3) Cardiomyopathy Current Visit: Yes Status: Acute Assessment and plan: Asymptomatic and well compensated. Qualifiers: Cardiomyopathy type: ischemic Qualified Code(s): I25.5 - Ischemic cardiomyopathy (4) CAD (coronary artery disease) Current Visit: Yes Status: Chronic Assessment and plan: On appropriate meds including aspirin, statin, lisinopril and beta declan. Qualifiers: Coronary Disease-Associated Artery/Lesion type: [place] artery [place] vs. transplanted heart: [place] heart Associated angina: with unstable angina Qualified Code(s): I25.110 - Atherosclerotic heart disease of [place] coronary artery with unstable angina pectoris (5) Essential hypertension Current Visit: Yes Status: Chronic Assessment and plan: Blood pressure is well controlled at this time. (6) CKD (chronic kidney disease) Current Visit: Yes Status: Resolved Assessment and plan: Resolved creatinine back to normal Qualifiers: Chronic kidney disease stage: stage 3 (moderate) Qualified Code(s): N18.3 - Chronic kidney disease, stage 3 (moderate) - Subjective Interval history: Patient seen post-op s/p CABGx3. Tolerated procedure well. - Constitutional Vitals: Temp Pulse Resp BP Pulse Ox 100.7 F H 92 12 106/64 95 03/06/17 23:00 03/06/17 23:00 03/06/17 23:24 03/06/17 23:24 03/06/17 23:24 General appearance: Present: no acute distress Exam: CVS: RRR Lungs: CTAB Ext: no edema Internal Medicine: Result - Labs CBC & Chem 7: 03/06/17 16:55 03/06/17 16:42 Labs: Short CBC 03/06/17 03/06/17 Range/Units 12:20 16:55 WBC 12.0 H 13.0 H (4.3-11.1) K/mcL Hgb 11.6 L D 10.5 L (12.9-16.9) g/dL Hct 34.1 L 30.5 L (37.5-50.1) % Plt Count 149 143 (140-400) K/mcL Neutrophils # 9.3 H 10.9 H (1.6-8.9) K/mcL BMP 03/06/17 03/06/17 12:20 16:42 Sodium 143 141 Potassium 3.9 4.8 H Chloride 108 107 Carbon Dioxide 25 22 BUN 13 13 Creatinine 0.99 1.14 Glucose 90 128 H Calcium 8.4 L 8.4 L - ABG Interpretation ABG results: ABG ABG pH 7.32 pH Units (7.32-7.45) 03/06/17 18:07 ABG pCO2 57 mmHg (35-45) H 03/06/17 18:07 ABG pO2 71 mmHg (85-104) L 03/06/17 18:07 ABG O2 Saturation 92 % (95-98) L 03/06/17 18:07 PT/INR, D-dimer PT 14.1 Seconds (9.4-12.1) H 03/06/17 12:20 - Impressions Impressions Chest X-Ray 03/06/17 12:07 IMPRESSION: 1. Interval sternotomy. 2. The endotracheal tube has its tip 4.9 cm above the carly. 3. The PA catheter has its tip in the right main pulmonary artery. 4. The nasogastric tube side-port is in the distal esophagus. Advancement is suggested. 5. Mild central vascular congestion and left basilar atelectasis. 6. Anterior chest tubes in place. No evident pneumothorax. D/ / 03/06/2017 13:17:52 Aaron Barboza MD / [facility] Interpreting Provider: Aaron Barboza MD X-Ray 03/06/17 12:07 IMPRESSION: The nasogastric tube proximal side port is in the distal esophagus. Further advancement is recommended. D/ / Vicente Echevarria MD / Vicente Echevarria MD Interpreting Provider: Vicente Echevarria MD X-Ray 03/06/17 13:20 IMPRESSION: 1. Interval advancement of the orogastric tube with the tip and side-port in the mid stomach. D/ / 03/06/2017 13:56:12 Marissa Wills MD / [facility] Interpreting Provider: Marissa Wills MD - VTE Documentation of Mechanical Device: Graduated compression elastic hosiery Consult Discharge Plan - Plan Referrals: NONE,PCP [Primary Care Provider] -
[2017-03-07] MEDS: Nitroglycerin 25 MG/250 ML INFUS..BTL IVC SCH ×2 (00:15→11:36)
[2017-03-07] MEDS: niCARdipine 40 MG/200 ML MLS IVC SCH ×2 (00:15→11:37)
[2017-03-07] MEDS: *HR* OxyCODONE/APAP 5/325 TABLET PO PRN ×4 (03:41→20:47)
[2017-03-07 03:58] LABS: Basophils % 0.2 %; Eosinophils % 0.1 %; Hematocrit 35.7 % (37.5-50.1); Immature Granulocytes % 0.5 % (0-4); Lymphocytes # 1.7 K/mcL (0.6-4.6); Lymphocytes % 10.1 %; Mean Corpuscular HGB Conc 33.6 g/dL (31.6-35.5); Mean Corpuscular Hemoglobin 31.5 pg (28.0-33.3); Mean Corpuscular Volume 93.7 fL (83.0-100.0); Mean Platelet Volume 10.9 fL (9.4-12.4); Monocytes # 2.1 K/mcL (0.0-1.3); Neutrophils # 13.2 K/mcL (1.6-8.9); Platelet Count 183 K/mcL (140-400); Red Blood Count 3.81 M/mcL (4.19-5.50); Red Cell Distribution Width 12.2 % (11.5-14.5); Segmented Neutrophils % 77.1 %
[2017-03-07 04:03] LABS: INR 1.2; Prothrombin Time 13.2 Seconds (9.4-12.1)
[2017-03-07 04:05] LABS: Activated Partial Thrombo Time 33.2 Seconds (26.0-36.0)
[2017-03-07 04:12] LABS: BUN/Creatinine Ratio 12 (6-26); Blood Urea Nitrogen 15 mg/dL (8-26); Calcium 8.3 mg/dL (8.6-10.8); Carbon Dioxide 22 mEq/L (19-29); Chloride 105 mEq/L (98-109); Glucose 126 mg/dL (70-99); Magnesium 2.2 mg/dL (1.6-2.6); Osmolality,Calculated 284 (280-300); Potassium 5.2 mEq/L (3.5-4.5); eGFR For African Americans > 60 (> 60); eGFR For Non-African Americans 55 (> 60)
[2017-03-07 04:16] LABS: Sodium 136 mEq/L (136-145)
[2017-03-07] MEDS: Metoclopramide 10 MG/2 ML VIAL IVP SCH ×4 (06:29→23:51)
--- NOTE | 2017-03-07 07:05 | Cardiothoracic Progress Note ---
Date of Encounter: 03/07/17 Time of Encounter: 07:05 - Assessment and plan (1) NSTEMI (non-ST elevated myocardial infarction) Current Visit: Yes Status: Acute The patient remained hemodynamically stable overnight. He is currently extubated and breathing comfortably. He is able to sit in a chair last evening for several hours. The arterial line, Willson catheter, and Barnum-Rolly catheter will be removed. He will be transferred to the stepdown unit when a bed is available. The assessment and plan as outlined above was discussed with the patient and/or family members who expressed understanding and agreement. All questions were answered. - Subjective Procedure(s) Performed: POD#1 S/P CABG3 Interval history: The patient remained hemodynamically stable overnight. He is extubated and breathing comfortably. He was able to sit in a chair last evening for several hours. Vital Signs, Last 4 Hours Temp Pulse Resp BP Pulse Ox 03/07/17 06:00 98.6 F 82 20 117/58 94 03/07/17 05:00 99.2 F 84 20 127/49 92 03/07/17 04:42 16 120/56 96 03/07/17 04:00 77 20 108/56 94 Oxgyen Flow Rate Oxygen Flow Rate (LPM) 4 Clinical Data, last 8 Hours Output, Chest Tube Drainage 50 Amount [Mediastinal #2] Output, Chest Tube Drainage 50 Amount [Mediastinal #2] Output, Chest Tube Drainage 35 Amount [Mediastinal #1] Output, Chest Tube Drainage 35 Amount [Mediastinal #1] Weight 03/05/17 03/06/17 03/07/17 23:59 23:59 23:59 Weight 110.813 kg 110.042 kg - Physical Examination General: Conversant, No Apparent Distress Neck: No JVD, Normal carotid pulses Cardiac: Reg Rate and Rhythm, Normal S1 and S2, No Murmur Incision: No signs of infection, Dry/intact dressing Sternum: Stable Chest tubes: Minimal drainage, Other (No air leak.) Pacing Wires: In place Lungs: Normal Breath Sounds, No Wheeze, Rales, Rhonchi Neuro: Alert and responsive, No focal deficits noted Vascular: Normal capillary refill Extremities: No Clubbing, No Cyanosis, No Edema - Labs 03/07/17 03:46 03/07/17 03:46 Lab Results, Last 24 hours 03/06/17 03/06/17 03/06/17 12:20 12:20 12:20 WBC 12.0 H Hgb 11.6 L D Hct 34.1 L Plt Count 149 INR 1.3 APTT 36.2 H D Sodium 143 Potassium 3.9 Chloride 108 Carbon Dioxide 25 BUN 13 Creatinine 0.99 Glucose 90 Calcium 8.4 L Magnesium 2.3 03/06/17 03/06/17 03/07/17 16:42 16:55 03:46 WBC 13.0 H 17.2 H Hgb 10.5 L 12.0 L D Hct 30.5 L 35.7 L Plt Count 143 183 INR APTT Sodium 141 Potassium 4.8 H Chloride 107 Carbon Dioxide 22 BUN 13 Creatinine 1.14 Glucose 128 H Calcium 8.4 L Magnesium 03/07/17 03/07/17 03:46 03:46 WBC Hgb Hct Plt Count INR 1.2 APTT 33.2 Sodium 136 Potassium 5.2 H Chloride 105 Carbon Dioxide 22 BUN 15 Creatinine 1.30 H Glucose 126 H Calcium 8.3 L Magnesium 2.2 - Imaging Chest Xray: image reviewed (No pneumothorax. Minimal left lower lobe atelectasis.) - VTE Documentation of Mechanical Device: Graduated compression elastic hosiery Consult Discharge Plan - Plan Referrals: NONE,PCP [Primary Care Provider] -
[2017-03-07] MEDS: Gabapentin 300 MG CAPSULE PO SCH ×2 (08:33→20:44)
[2017-03-07] MEDS: Chlorhexidine Rinse 15 ML MOUTHWASH MM SCH (08:33)
[2017-03-07] MEDS ORDERED: Furosemide 20 MG/2 ML VIAL IVP SCH (09:00)
[2017-03-07] MEDS: 0.9 % Sodium Chloride w KCl 20 MEQ/1,000 ML MLS IVC SCH (11:36)
[2017-03-07] MEDS: Norepinephrine 4 MG in D5% in Water 250 ML IVC SCH (11:37)
[2017-03-07] MEDS ORDERED: Insulin Regular, Human 100 UNIT/ML IV PRN (11:38)
[2017-03-07] MEDS ORDERED: *HR* Morphine 2 MG/ML SYRINGE IVP PRN ×2 (11:38)
[2017-03-07] MEDS ORDERED: Acetaminophen 325 MG TABLET PO PRN (11:38)
[2017-03-07] MEDS ORDERED: *HR* Dextrose 50 % in Water (Syg) 50 ML SYRINGE IVP PRN ×2 (11:38→17:37)
[2017-03-07] MEDS ORDERED: Ondansetron 4 MG/2 ML VIAL IVP PRN (11:38)
[2017-03-07] MEDS ORDERED: Naloxone 0.4 MG/ML INJ IVP PRN (11:38)
[2017-03-07] MEDS ORDERED: Insulin Human Regular 100 UNIT in 0.9 % Sodium Chloride 100 ML IVC SCH (11:38)
[2017-03-07] MEDS ORDERED: D5% in Water 1,000 ML IVC PRN (17:37)
[2017-03-07] MEDS ORDERED: Dextrose Gel 15 GM PO PRN ×2 (17:37)
[2017-03-07] MEDS: *HR* Heparin 5,000 UNIT/ML VIAL SQ SCH (18:06)
[2017-03-07] MEDS: Furosemide 20 MG/2 ML VIAL IVP SCH ×2 (20:45→23:47)
[2017-03-07] MEDS: Insulin LISPRO 300 UNITS/3 ML VIAL SQ SCH (20:47)
[2017-03-07] MEDS ORDERED: Chlorhexidine Rinse 15 ML MOUTHWASH MM SCH (21:00)
[2017-03-08 04:08] LABS: Basophils % 0.2 %; Eosinophils # 0.1 K/mcL (0.0-0.6); Eosinophils % 0.9 %; Hematocrit 33.5 % (37.5-50.1); Hemoglobin 11.2 g/dL (12.9-16.9); Immature Granulocytes % 0.5 % (0-4); Lymphocytes # 1.7 K/mcL (0.6-4.6); Lymphocytes % 13.8 %; Mean Corpuscular HGB Conc 33.4 g/dL (31.6-35.5); Mean Corpuscular Hemoglobin 31.2 pg (28.0-33.3); Mean Corpuscular Volume 93.3 fL (83.0-100.0); Mean Platelet Volume 10.8 fL (9.4-12.4); Monocytes # 1.4 K/mcL (0.0-1.3); Monocytes % 11.4 %; Neutrophils # 8.8 K/mcL (1.6-8.9); Platelet Count 165 K/mcL (140-400); Red Blood Count 3.59 M/mcL (4.19-5.50); Red Cell Distribution Width 12.1 % (11.5-14.5); Segmented Neutrophils % 73.2 %
[2017-03-08] MEDS: *HR* Heparin 5,000 UNIT/ML VIAL SQ SCH ×2 (04:44→18:50)
[2017-03-08] MEDS: *HR* OxyCODONE/APAP 5/325 TABLET PO PRN (04:44)
[2017-03-08] MEDS: Metoclopramide 10 MG/2 ML VIAL IVP SCH ×3 (04:44→18:50)
[2017-03-08 05:33] LABS: BUN/Creatinine Ratio 16 (6-26); Blood Urea Nitrogen 18 mg/dL (8-26); Calcium 8.8 mg/dL (8.6-10.8); Carbon Dioxide 25 mEq/L (19-29); Chloride 102 mEq/L (98-109); Glucose 115 mg/dL (70-99); Osmolality,Calculated 287 (280-300); Potassium 4.5 mEq/L (3.5-4.5); Sodium 137 mEq/L (136-145); eGFR For African Americans > 60 (> 60); eGFR For Non-African Americans > 60 (> 60)
--- NOTE | 2017-03-08 07:14 | Cardiothoracic Progress Note ---
Date of Encounter: 03/08/17 Time of Encounter: 07:13 - Assessment and plan (1) NSTEMI (non-ST elevated myocardial infarction) Current Visit: Yes Status: Acute The patient remained hemodynamically stable overnight. The chest tubes were removed. He will be transferred to the stepdown unit when a bed is available. The assessment and plan as outlined above was discussed with the patient and/or family members who expressed understanding and agreement. All questions were answered. - Subjective Procedure(s) Performed: POD#2 S/P CABG3 Interval history: The patient remained hemodynamically stable overnight. He has no complaints. Vital Signs, Last 4 Hours Temp Pulse Resp BP Pulse Ox 03/08/17 06:00 79 15 92 03/08/17 05:00 82 15 131/75 92 03/08/17 04:28 15 92 03/08/17 04:00 99.2 F 84 14 133/68 93 Oxgyen Flow Rate Oxygen Flow Rate (LPM) 4 Clinical Data, last 8 Hours Output, Chest Tube Drainage 0 Amount [Mediastinal #2] Output, Chest Tube Drainage 0 Amount [Mediastinal #2] Output, Chest Tube Drainage 0 Amount [Mediastinal #1] Output, Chest Tube Drainage 0 Amount [Mediastinal #1] Output, Urine Amount 400 Output, Urine Amount 450 Weight 03/06/17 03/07/17 03/08/17 23:59 23:59 23:59 Weight 110.042 kg - Physical Examination General: Conversant, No Apparent Distress Neck: No JVD, Normal carotid pulses Cardiac: Reg Rate and Rhythm, Normal S1 and S2, No Murmur Incision: No signs of infection, Dry/intact dressing Sternum: Stable Chest tubes: Minimal drainage, Other (No air leak.) Pacing Wires: In place Lungs: Normal Breath Sounds, No Wheeze, Rales, Rhonchi Neuro: Alert and responsive, No focal deficits noted Vascular: Normal capillary refill Extremities: No Clubbing, No Cyanosis, No Edema, Normal Pulses - Labs 03/08/17 04:00 03/08/17 04:00 Lab Results, Last 24 hours 03/08/17 03/08/17 04:00 04:00 WBC 12.0 H Hgb 11.2 L Hct 33.5 L Plt Count 165 Sodium 137 Potassium 4.5 Chloride 102 Carbon Dioxide 25 BUN 18 Creatinine 1.16 Glucose 115 H Calcium 8.8 - VTE Documentation of Mechanical Device: Graduated compression elastic hosiery Consult Discharge Plan - Plan Referrals: NONE,PCP [Primary Care Provider] -
[2017-03-08] MEDS: Gabapentin 300 MG CAPSULE PO SCH ×2 (07:44→20:30)
[2017-03-08] MEDS: Aspirin Enteric Coated 81 MG Tablet PO SCH (07:45)
[2017-03-08] MEDS: Insulin LISPRO 300 UNITS/3 ML VIAL SQ SCH ×4 (07:45→20:58)
[2017-03-08] MEDS: Furosemide 20 MG/2 ML VIAL IVP SCH ×2 (07:45→20:32)
[2017-03-08] MEDS: Pantoprazole 40 MG VIAL IVP SCH (07:45)
[2017-03-08] MEDS ORDERED: *HR* Heparin 5,000 UNIT/ML VIAL SQ SCH (09:00)
[2017-03-08] MEDS ORDERED: Aspirin Enteric Coated 81 MG Tablet PO SCH (09:00)
[2017-03-09] MEDS: Metoclopramide 10 MG/2 ML VIAL IVP SCH ×4 (00:11→17:54)
[2017-03-09] MEDS: *HR* Heparin 5,000 UNIT/ML VIAL SQ SCH ×2 (05:54→17:54)
--- NOTE | 2017-03-09 06:58 | Cardiothoracic Progress Note ---
Date of Encounter: 03/09/17 Time of Encounter: 06:57 - Assessment and plan (1) NSTEMI (non-ST elevated myocardial infarction) Current Visit: Yes Status: Acute The patient remained hemodynamically stable overnight. The patient will continue ambulating in the hallways today. He should be ready for discharge in 1 -2 days. The assessment and plan as outlined above was discussed with the patient and/or family members who expressed understanding and agreement. All questions were answered. - Subjective Procedure(s) Performed: POD#3 S/P CABG3 Interval history: The patient remained hemodynamically stable overnight. He has no complaints. Vital Signs, Last 4 Hours Temp Pulse Resp BP Pulse Ox 03/09/17 04:00 81 03/09/17 03:35 98.4 F 84 21 114/73 93 03/09/17 03:23 18 90 Oxgyen Flow Rate Oxygen Flow Rate (LPM) 4 Clinical Data, last 8 Hours Output, Urine Amount 200 Output, Urine Amount 225 Weight 03/07/17 03/08/17 03/09/17 23:59 23:59 23:59 Weight 116.3 kg 114.7 kg - Physical Examination General: Conversant, No Apparent Distress Neck: No JVD, Normal carotid pulses Cardiac: Reg Rate and Rhythm, Normal S1 and S2, No Murmur Incision: No signs of infection, Dry/intact dressing Sternum: Stable Lungs: Normal Breath Sounds, No Wheeze, Rales, Rhonchi Neuro: Alert and responsive, No focal deficits noted Vascular: Normal capillary refill Musculoskeletal: No Chest Wall Tenderness Extremities: No Clubbing, No Cyanosis, No Edema, Normal Pulses - Labs 03/08/17 04:00 03/08/17 04:00 - VTE Documentation of Mechanical Device: Graduated compression elastic hosiery Consult Discharge Plan - Plan Referrals: NONE,PCP [Primary Care Provider] -
[2017-03-09] MEDS: Insulin LISPRO 300 UNITS/3 ML VIAL SQ SCH ×4 (08:45→22:41)
[2017-03-09] MEDS: Aspirin Enteric Coated 81 MG Tablet PO SCH (08:46)
[2017-03-09] MEDS: Furosemide 20 MG/2 ML VIAL IVP SCH (08:46)
[2017-03-09] MEDS: Gabapentin 300 MG CAPSULE PO SCH ×2 (08:46→22:32)
[2017-03-09] MEDS: Pantoprazole 40 MG VIAL IVP SCH (08:46)
--- NOTE | 2017-03-09 09:20 | Event Note ---
Date of Encounter: 03/09/17 Time of Encounter: 09:18 Pt post CABG and being managed by CT surgery. Will sign off and transition care over to their service. Please call us if needed.
[2017-03-09] MEDS ORDERED: MOM Conc 10 ML UD.LIQ PO PRN (15:44)
[2017-03-10] MEDS: *HR* Heparin 5,000 UNIT/ML VIAL SQ SCH ×2 (06:05→17:04)
[2017-03-10] MEDS: Insulin LISPRO 300 UNITS/3 ML VIAL SQ SCH (07:40)
[2017-03-10] MEDS: Pantoprazole 40 MG VIAL IVP SCH (07:48)
[2017-03-10] MEDS: Aspirin Enteric Coated 81 MG Tablet PO SCH (07:48)
[2017-03-10] MEDS: Gabapentin 300 MG CAPSULE PO SCH ×2 (07:48→20:19)
--- NOTE | 2017-03-10 09:38 | Cardiothoracic Progress Note ---
Date of Encounter: 03/10/17 Time of Encounter: 09:36 - Assessment and plan (1) CAD (coronary artery disease) Current Visit: Yes Status: Chronic The assessment and plan as outlined above was discussed with the patient and/or family members who expressed understanding and agreement. All questions were answered. The patient is doing well. He has no complaints. We will plan to discharge him tomorrow. Qualifiers: Coronary Disease-Associated Artery/Lesion type: [place] artery [place] vs. transplanted heart: [place] heart Associated angina: with unstable angina Qualified Code(s): I25.110 - Atherosclerotic heart disease of [place] coronary artery with unstable angina pectoris - Subjective Interval history: The patient has no complaints and is ambulating well. Vital Signs, Last 4 Hours Temp Pulse Resp BP Pulse Ox 03/10/17 07:54 72 03/10/17 07:40 16 94 03/10/17 07:27 98.0 F 81 18 114/77 92 Oxgyen Flow Rate Oxygen Flow Rate (LPM) 2 Clinical Data, last 8 Hours Output, Urine Amount 225 Output, Urine Amount 625 Output, Urine Amount 300 Weight 03/08/17 03/09/17 03/10/17 23:59 23:59 23:59 Weight 116.3 kg 114.7 kg 114.1 kg Lungs are clear to percussion and auscultation. Heart is in a normal sinus rhythm. All incisions are healing well without signs of infection and the sternum is stable. - Labs 03/08/17 04:00 03/08/17 04:00 - VTE Documentation of Mechanical Device: Graduated compression elastic hosiery Consult Discharge Plan - Plan Referrals: NONE,PCP [Primary Care Provider] -
[2017-03-11 04:39] LABS: Basophils % 0.3 %; Eosinophils # 0.3 K/mcL (0.0-0.6); Eosinophils % 3.5 %; Hematocrit 33.5 % (37.5-50.1); Immature Granulocytes % 1.5 % (0-4); Lymphocytes # 1.7 K/mcL (0.6-4.6); Lymphocytes % 19.9 %; Mean Corpuscular HGB Conc 32.8 g/dL (31.6-35.5); Mean Corpuscular Hemoglobin 30.6 pg (28.0-33.3); Mean Corpuscular Volume 93.1 fL (83.0-100.0); Mean Platelet Volume 10.4 fL (9.4-12.4); Neutrophils # 5.5 K/mcL (1.6-8.9); Platelet Count 255 K/mcL (140-400); Red Cell Distribution Width 11.9 % (11.5-14.5); Segmented Neutrophils % 63.8 %
[2017-03-11 04:49] LABS: BUN/Creatinine Ratio 19 (6-26); Blood Urea Nitrogen 20 mg/dL (8-26); Calcium 9.1 mg/dL (8.6-10.8); Carbon Dioxide 28 mEq/L (19-29); Chloride 106 mEq/L (98-109); Glucose 107 mg/dL (70-99); Osmolality,Calculated 293 (280-300); Potassium 4.2 mEq/L (3.5-4.5); Sodium 140 mEq/L (136-145); eGFR For African Americans > 60 (> 60); eGFR For Non-African Americans > 60 (> 60)
[2017-03-11] MEDS: *HR* Heparin 5,000 UNIT/ML VIAL SQ SCH (06:14)
[2017-03-11 07:42] VITALS: BP 134/78
[2017-03-11] MEDS: Aspirin Enteric Coated 81 MG Tablet PO SCH (08:08)
[2017-03-11] MEDS: Gabapentin 300 MG CAPSULE PO SCH (08:08)
[2017-03-11] MEDS: Pantoprazole 40 MG VIAL IVP SCH (08:08)
--- NOTE | 2017-03-11 08:50 | Discharge Summary ---
Date of Encounter: 03/11/17 Time of Encounter: 08:44 - Discharge Diagnosis (1) CAD (coronary artery disease) Priority: Primary Status: Chronic Qualifiers: Coronary Disease-Associated Artery/Lesion type: [place] artery [place] vs. transplanted heart: [place] heart Associated angina: with unstable angina Qualified Code(s): I25.110 - Atherosclerotic heart disease of [place] coronary artery with unstable angina pectoris - Discharge Medications Prescriptions: OxyCODONE/APAP 5/325 [Percocet 5/325 MG] 1 each PO Q4HR PRN #10 tablet PRN Reason: Severe Pain Aspirin Enteric Coated [Aspirin EC] 81 mg PO DAILY #60 tablet. Metoprolol [Lopressor] 25 mg PO BID #60 tablet Rosuvastatin [Crestor] 20 mg PO HS #30 tablet Home Medications: Albuterol Sulfate [Ventolin Hfa] 2 puff IH QID PRN 02/28/17 [History] Amlodipine Besylate 10 mg PO DAILY 02/28/17 [History] Gabapentin [Neurontin] 600 mg PO BID 02/28/17 [History] Lisinopril [Zestril] 20 mg PO BID 02/28/17 [History] Aspirin Enteric Coated [Aspirin EC] 81 mg PO DAILY #60 tablet. 03/11/17 [Rx] Metoprolol [Lopressor] 25 mg PO BID #60 tablet 03/11/17 [Rx] OxyCODONE/APAP 5/325 [Percocet 5/325 MG] 1 each PO Q4HR PRN #10 tablet 03/11/17 [Rx] Rosuvastatin [Crestor] 20 mg PO HS #30 tablet 03/11/17 [Rx] Allergies/Adverse Reactions: 3 Allergy/AdvReac Type Severity Reaction Status Date / Time atorvastatin AdvReac See Verified 03/03/17 01:24 Comments Date of admission: 02/28/17 19:28 Primary care physician: PCP NONE Consults: 02/28/17 22:17 Consult to Cardiology [CONS] Routine Comment: Consulting Provider: Cardiology [place] Reason for Consult: NSTEMI Call Completed: Yes 03/01/17 14:29 Consult to Cardiothoracic Surgery [CONS] Routine Consulting Provider: Cardiothoracic Surgery [place] Reason for Consult: CABG Time Notified: 15:15 Call Completed: Yes 03/06/17 12:07 Consult to Cardiac Rehabilitation-Phase1 [CONS] Routine Comment: Reason for Consult: Post open heart Call Completed: Yes Procedure(s) Performed: March 06, 2017. Coronary artery bypass grafting 3, utilizing the left internal mammary artery. Discharging clinician: Sergei Camilo Anticipated date of discharge: 03/11/17 - Patient Status Disposition: Home, Self-Care Condition: Fair Functional capacity at discharge: independent ambulation Overall status at discharge: patient is progressing back to baseline - Discharge Instructions Follow Up With: NONE,PCP [Primary Care Provider] - - Hospital Course Hospital course: Mr. Porras is a 66 year old male The patient is a 66-year-old gentleman with a history of hypertension. He was admitted with a myocardial infarction on February 27, 2017. Cardiac catheterization revealed an ejection fraction of 40% and severe coronary artery disease. He had received Plavix and this was stopped. On March 06, 2017, Dr. Cortes took the patient to the operating room for coronary artery bypass grafting 3, utilizing the left internal mammary artery. The patient also had placement of a [place] catheter by urology. The patient tolerated the procedure well. On March 07, transfer orders were written for the floor. Chest tubes were removed on March 08. Pacing wires were removed on March 11. The patient otherwise did well and was discharged on March 11. At that time he was afebrile. Lungs were clear to percussion and auscultation. Heart was in a normal sinus rhythm. All incisions were healing well without signs of infection and the sternum was stable. Discharge medications are on the med rec and include narcotics for pain. I did check the [place] automated Rx reporting system. The patient was given a one-week supply and he was postoperative. Appropriate precautions were given. The patient was to return to his previous and regular diet. He was to avoid heavy lifting for a total of 3 months after surgery. He was to walk as much as possible and to avoid driving for 1 month. He was to follow-up in see Dr. Cortes in the office in 4 weeks as directed. He was to follow-up in see his golf caddie and primary care doctor as directed. He was to call sooner for any difficulties. - Time Spent with Patient Total time spent providing and/or coordinating discharge services: Physical Examination Vital Signs, Last 4 Hours Temp Pulse Resp BP Pulse Ox 03/11/17 07:40 97.6 F 77 18 134/78 94 Open Heart Registry Aspirin Cont/Prescribed at DC: Yes Beta Jennifer Cont/Prescribed at DC: Yes Statin Cont/Prescribed at DC: Yes KEEGAN/ARB Cont/Prescribed at DC: Yes - VTE Documentation of Mechanical Device: Graduated compression elastic hosiery
== END 2017-03-11 11:45 | disposition home or self-care (01) | DRG 234 ==
LOC: SUATTDRO 19:28 → 3BNU 19:28 → ICNU 03-06 07:57 → 2NNU 03-08 18:04
PROVIDERS: ADMIT Internal Medicine; ATTEND Student in an Organized Health Care Education/Training Program

== ENCOUNTER 2021-10-06 13:12 | Observation (INO) ==
[2021-10-06 14:59] LABS: Basophils % 0.4 %; Eosinophils # 0.2 K/mcL (0.0-0.6); Eosinophils % 3.1 %; Hemoglobin 14.6 g/dL (12.9-16.9); Immature Granulocytes % 0.4 % (0-4); Lymphocytes % 25.5 %; Mean Corpuscular HGB Conc 32.4 g/dL (31.6-35.5); Mean Corpuscular Hemoglobin 30.8 pg (28.0-33.3); Mean Corpuscular Volume 94.9 fL (83.0-100.0); Mean Platelet Volume 10.2 fL (9.4-12.4); Monocytes # 0.9 K/mcL (0.0-1.3); Neutrophils # 4.7 K/mcL (1.6-8.9); Platelet Count 146 K/mcL (140-400); Red Blood Count 4.74 M/mcL (4.19-5.50); Red Cell Distribution Width 12.8 % (11.5-14.5); Segmented Neutrophils % 59.6 %; White Blood Count 7.9 K/mcL (4.3-11.1)
[2021-10-06 15:15] LABS: BUN/Creatinine Ratio 15 (6-26); Blood Urea Nitrogen 18 mg/dL (8-23); Calcium 9.4 mg/dL (8.6-10.3); Carbon Dioxide 27 mEq/L (23-29); Chloride 109 mEq/L (98-107); Glucose 99 mg/dL (70-105); Osmolality,Calculated 294 (280-300); Potassium 4.2 mEq/L (3.5-5.1); Sodium 141 mEq/L (136-145); eGFR For African Americans > 60 (> 60); eGFR For Non-African Americans 58 (> 60)
[2021-10-06 15:17] LABS: Troponin I < 0.03 ng/mL (< 0.04)
[2021-10-06] MEDS ORDERED: Furosemide 40 MG/4 ML VIAL IVP ONE (16:38)
[2021-10-06] MEDS ORDERED: Naloxone 0.4 MG/ML INJ IVP PRN (16:56)
[2021-10-06] MEDS ORDERED: Melatonin 3 MG TABLET PO PRN (16:56)
[2021-10-06] MEDS ORDERED: *HR* Heparin 5,000 UNIT/ML VIAL IVP PRN ×2 (17:58)
[2021-10-06] MEDS ORDERED: *HR* Heparin 5,000 UNIT/ML VIAL IVP ONE (17:58)
[2021-10-06] MEDS ORDERED: Perflutren Lipid Microsphere 1.3 ML in 0.9 % Sodium Chloride 8.7 ML IVP PRN (17:59)
[2021-10-06 18:45] LABS: Heparin anti-factor XA UFH < 0.04 IU/mL (0.30-0.70); INR 1.1; Prothrombin Time 12.1 Seconds (9.4-12.1)
[2021-10-06 18:48] LABS: Activated Partial Thrombo Time 36.4 Seconds (26.0-36.0)
[2021-10-06] MEDS: Aspirin Enteric Coated 81 MG Tablet PO SCH (18:53)
[2021-10-06] MEDS: Metoprolol XL (24 HR) Succ 50 MG TAB.ER.24H PO SCH (18:54)
[2021-10-06] MEDS: amLODIPine 5 MG TABLET PO SCH (18:54)
[2021-10-06] MEDS: Heparin 25,000UNIT/250ML 1/2NS 25,000 UNIT/250 ML IV.SOLN IVC SCH (19:58)
[2021-10-06] MEDS: lisinopriL 20 MG TABLET PO SCH (19:58)
[2021-10-07 01:52] LABS: Basophils % 0.3 %; Eosinophils # 0.3 K/mcL (0.0-0.6); Eosinophils % 3.5 %; Hematocrit 42.8 % (37.5-50.1); Hemoglobin 14.2 g/dL (12.9-16.9); Immature Granulocytes % 0.3 % (0-4); Lymphocytes # 1.9 K/mcL (0.6-4.6); Lymphocytes % 24.9 %; Mean Corpuscular HGB Conc 33.2 g/dL (31.6-35.5); Mean Corpuscular Hemoglobin 31.6 pg (28.0-33.3); Mean Corpuscular Volume 95.1 fL (83.0-100.0); Mean Platelet Volume 10.2 fL (9.4-12.4); Monocytes # 0.8 K/mcL (0.0-1.3); Monocytes % 10.4 %; Neutrophils # 4.6 K/mcL (1.6-8.9); Platelet Count 141 K/mcL (140-400); Red Cell Distribution Width 12.8 % (11.5-14.5); Segmented Neutrophils % 60.6 %; White Blood Count 7.6 K/mcL (4.3-11.1)
[2021-10-07 02:16] LABS: BUN/Creatinine Ratio 16 (6-26); Blood Urea Nitrogen 18 mg/dL (8-23); Carbon Dioxide 26 mEq/L (23-29); Chloride 107 mEq/L (98-107); Chol/HDL Ratio 2.4 (0-4.9); Cholesterol 100 mg/dL (< 200); Glucose 102 mg/dL (70-105); HDL Cholesterol 42 mg/dL (40-59); LDL Cholesterol,Calculated 45 mg/dL (< 100); Magnesium 2.1 mg/dL (1.6-2.6); Osmolality,Calculated 294 (280-300); Potassium 3.7 mEq/L (3.5-5.1); Sodium 141 mEq/L (136-145); Triglycerides 67 mg/dL (< 150); eGFR For African Americans > 60 (> 60); eGFR For Non-African Americans > 60 (> 60)
[2021-10-07] MEDS: Heparin 25,000UNIT/250ML 1/2NS 25,000 UNIT/250 ML IV.SOLN IVC SCH (08:38)
[2021-10-07] MEDS: Aspirin Enteric Coated 81 MG Tablet PO SCH (08:45)
[2021-10-07] MEDS: Furosemide 40 MG/4 ML VIAL IVP SCH ×2 (08:45→17:00)
[2021-10-07] MEDS: lisinopriL 20 MG TABLET PO SCH ×2 (08:45→21:35)
[2021-10-07] MEDS: amLODIPine 5 MG TABLET PO SCH (08:45)
[2021-10-07] MEDS: (Omega-3/Dha/Epa/Fish Oil [Fish Oil 1,000 Mg Softgel] PO SCH (08:46)
[2021-10-07] MEDS: Metoprolol XL (24 HR) Succ 50 MG TAB.ER.24H PO SCH (08:46)
[2021-10-07] MEDS: ZINC ACETATE 25 MG PO SCH (08:46)
[2021-10-07] MEDS: Finasteride 5 MG TABLET PO SCH (08:46)
[2021-10-08] MEDS: Heparin 25,000UNIT/250ML 1/2NS 25,000 UNIT/250 ML IV.SOLN IVC SCH ×2 (00:48→09:23)
[2021-10-08 02:07] LABS: Basophils % 0.5 %; Eosinophils # 0.2 K/mcL (0.0-0.6); Eosinophils % 2.6 %; Hematocrit 46.2 % (37.5-50.1); Hemoglobin 15.1 g/dL (12.9-16.9); Immature Granulocytes % 0.6 % (0-4); Lymphocytes % 23.2 %; Mean Corpuscular HGB Conc 32.7 g/dL (31.6-35.5); Mean Corpuscular Hemoglobin 30.8 pg (28.0-33.3); Mean Corpuscular Volume 94.1 fL (83.0-100.0); Mean Platelet Volume 10.4 fL (9.4-12.4); Monocytes # 0.8 K/mcL (0.0-1.3); Monocytes % 9.5 %; Neutrophils # 5.5 K/mcL (1.6-8.9); Platelet Count 165 K/mcL (140-400); Red Blood Count 4.91 M/mcL (4.19-5.50); Red Cell Distribution Width 12.6 % (11.5-14.5); Segmented Neutrophils % 63.6 %; White Blood Count 8.6 K/mcL (4.3-11.1)
[2021-10-08 02:35] LABS: BUN/Creatinine Ratio 18 (6-26); Blood Urea Nitrogen 24 mg/dL (8-23); Calcium 9.7 mg/dL (8.6-10.3); Carbon Dioxide 28 mEq/L (23-29); Chloride 103 mEq/L (98-107); Glucose 99 mg/dL (70-105); Osmolality,Calculated 296 (280-300); Potassium 3.9 mEq/L (3.5-5.1); Sodium 141 mEq/L (136-145); eGFR For African Americans > 60 (> 60); eGFR For Non-African Americans 53 (> 60)
[2021-10-08] MEDS: Aspirin Enteric Coated 81 MG Tablet PO SCH (09:17)
[2021-10-08] MEDS: (Omega-3/Dha/Epa/Fish Oil [Fish Oil 1,000 Mg Softgel] PO SCH (09:18)
[2021-10-08] MEDS: Metoprolol XL (24 HR) Succ 50 MG TAB.ER.24H PO SCH (09:18)
[2021-10-08] MEDS: ZINC ACETATE 25 MG PO SCH (09:18)
[2021-10-08] MEDS: Finasteride 5 MG TABLET PO SCH (09:18)
[2021-10-08] MEDS: amLODIPine 5 MG TABLET PO SCH (09:18)
[2021-10-08] MEDS: Furosemide 40 MG/4 ML VIAL IVP SCH (09:25)
[2021-10-08] MEDS ORDERED: Furosemide 40 MG TABLET PO SCH (09:30)
[2021-10-08 10:46] VITALS: BP 125/50; PULSE 61; TEMP 97.9; O2SAT 93
[2021-10-08] MEDS ORDERED: Apixaban 5 MG TABLET PO SCH (12:15)
== END 2021-10-08 13:33 | disposition home or self-care (01) ==
LOC: EMEROOARM 13:12 → 3BNU 13:12 → SUATTDRO 17:12 → 3BNU 17:58
PROVIDERS: ADMIT Internal Medicine; ATTEND Internal Medicine